=== PATIENT | male | born 1955 | race Caucasian/White ===

== ENCOUNTER 2017-01-19 16:28 | Emergency (ER) | payer OTHER ==
[2017-01-19 16:32] VITALS: BP 158/93; PULSE 86; TEMP 98.8; BMI 21.2
[2017-01-19] MEDS ORDERED: ALPRAZolam 2 MG TABLET PO ONE (17:21)
[2017-01-19] MEDS ORDERED: ALPRAZolam 0.25 MG TABLET ONE (17:24)
--- NOTE | 2017-01-19 17:32 | PDOC ---
History of Present Illness - General Chief Complaint: RX Refill Stated Complaint: ANXIETY Time Seen by Provider: 01/19/17 16:36 History Source: Patient Exam Limitations: No Limitations - History of Present Illness Initial Comments: 01/19/17 17:23 Patient is a 62-year-old male with history of chronic anxiety on high dose alprazolam, was taking 1 mg, 10 mg per day. Patient recently saw a new psychiatrist because his old psychiatrist had a retired who changed his dose to alprazolam 0.5 mg. Patient states that he feels extremely anxious and his anxiety level is "through the roof" feels that he may go through withdrawals. Patient was seen by his primary care doctor today Dr. Epstein today that attempted to give him a few tablets to cover him until the psychiatrist returns. Prescription was attempted to be sent, pharmacy was not able to fill. See MDM section for Istop info. Past Medical History: Denies. Allergies: No known allergies Medications: Xanax Family History: Non-contributory Social History: Denies smoking, alcohol use, or IVDU Vital signs on arrival are notable for pulse of 86 BP 158/93. Review of Systems GENERAL/CONSTITUTIONAL: No fever or chills. No weakness. No weight change. HEAD, EYES, EARS, NOSE AND THROAT: No change in vision. No ear pain or discharge. No sore throat. CARDIOVASCULAR: No chest pain or shortness of breath. No palpitations. RESPIRATORY: No cough, wheezing, or hemoptysis. GASTROINTESTINAL: No nausea, vomiting, diarrhea or constipation. No rectal bleeding. GENITOURINARY: No dysuria, frequency, or change in urination. MUSCULOSKELETAL: No joint or muscle swelling or pain. No neck or back pain. SKIN AND BREASTS: No rash or easy bruising. NEUROLOGIC: No headache, vertigo, loss of consciousness, or loss of sensation. PSYCHIATRIC: No depression or anxiety. ENDOCRINE: No increased thirst. No abnormal weight change. HEMATOLOGIC/LYMPHATIC: No anemia, easy bleeding, or history of blood clots. ALLERGIC/IMMUNOLOGIC: No hives or skin allergy. No latex allergy. Physical Exam: GENERAL: The patient is awake, alert, and fully oriented, in no acute distress. EYES: Pupils equal, round and reactive to light, extraocular movements intact, sclera anicteric, conjunctiva clear. ENT: Ears normal, nares patent, oropharynx clear without exudates. Moist mucous membranes. No uvula deviation NECK: Normal range of motion, supple without lymphadenopathy, JVD, or masses. LUNGS: Breath sounds equal, clear to auscultation bilaterally. No wheezes, and no crackles. HEART: Regular rate and rhythm, normal S1 and S2 without murmur, rub or gallop. ABDOMEN: Soft, nontender, normoactive bowel sounds. No guarding, no rebound. No masses. No bruising or abrasions MUSCULOSKELETAL: Normal range of motion, no edema. No clubbing or cyanosis. No cords, erythema, or tenderness. No CVA Tenderness with fist. NEUROLOGICAL: Cranial nerves II through XII grossly intact. Normal speech, normal gait. PSYCH: Normal mood, normal affect. Not demonstrating clinical signs of anxiety. SKIN: Warm, Dry, normal turgor, no rashes or lesions noted. Past History - Past Medical History Allergies/Adverse Reactions: Allergies Allergy/AdvReac Type Severity Reaction Status Date / Time No Known Allergies Allergy Verified 01/19/17 16:32 Home Medications: Ambulatory Orders Alprazolam [Xanax] 0.5 mg PO ASDIR 01/19/17 Psychiatric Problems: Yes (anxiety) - Psycho/Social/Smoking Cessation Hx Anxiety: Yes Suicidal Ideation: No Smoking History: Current every day smoker Number of Cigarettes Smoked Daily: 8 Information on smoking cessation initiated: No Hx Alcohol Use: No Drug/Substance Use Hx: No *Physical Exam - Vital Signs Last Vital Signs Temp Pulse Resp BP Pulse Ox 98.8 F 86 16 158/93 98 01/19/17 16:30 01/19/17 16:30 01/19/17 16:30 01/19/17 16:30 01/19/17 16:30 Medical Decision Making - Medical Decision Making 01/19/17 17:32 A/P: Patient here with chronic anxiety his medication dose was recently decreased significantly causing him to have increased anxiety and feeling of panic attacks. Patient has been cutting his pills in half to cover him was unable to receive prescription a primary care doctor and his psychiatrist is on medication. I stop monitored This report was requested by: Jacklyn Boyle | Reference #: [id number] You have not added a [facility] number. Keeping your N[facility] number(s) up to date on the My [facility] Numbers page will enable the separation of your prescriptions from others ' in the search results. Others' Prescriptions Patient Name: Prasanth Baron Date: 1955 Address: [address] [place] [address] Sex: Male Rx Written Rx Dispensed Drug Quantity Days Supply Prescriber Name 12/31/2016 12/31/2016 alprazolam 0.5 mg tablet 240 30 Haley Schmitt MD 12/02/2016 12/03/2016 alprazolam 0.5 mg tablet 240 30 Haley Schmitt MD 11/12/2016 11/13/2016 alprazolam 1 mg tablet 300 30 HayChantal olson MD 10/15/2016 10/15/2016 alprazolam 1 mg tablet 300 30 HaymoChantal huitron MD 09/01/2016 09/17/2016 alprazolam 1 mg tablet 300 30 FraierPrasanth MD 08/17/2016 08/17/2016 alprazolam 1 mg tablet 300 30 FraierPrasanth MD 07/13/2016 07/20/2016 alprazolam 1 mg tablet 300 30 FraierPrasanth MD 06/19/2016 06/19/2016 alprazolam 1 mg tablet 300 30 FraierPrasanth MD 05/19/2016 05/19/2016 alprazolam 1 mg tablet 300 30 FraierPrasanth MD 04/12/2016 04/19/2016 alprazolam 1 mg tablet 300 30 FraierPrasanth MD 03/12/2016 03/19/2016 alprazolam 1 mg tablet 300 30 FraierPrasanth MD 02/18/2016 02/18/2016 alprazolam 1 mg tablet 300 30 FraierPrasanth MD * - Drugs marked with an asterisk are compound drugs. If the compound drug is made up of more than one controlled substance, then each controlled substance will be a separate row in the table. I explained to patient that due to his prescription being filled on 12/31/2016 we are unable to write another prescription at this time. 1 mg of alprazolam ordered while in emergency department, patient will need to follow-up in the office of his psychiatrist tomorrow even though they're on vacation he needs to call to see if there is another psychiatrist available to see him. Patient is not demonstrating any clinical signs of withdrawal at this time. We will give him a dose to cover him until tomorrow when he follows up in the office of his psychiatrist. Patient agrees with current plan, will follow-up tomorrow *DC/Admit/Observation/Transfer Diagnosis at time of Disposition: Anxiety, Issue of repeat prescription for medication - Discharge Dispostion Disposition: HOME Condition at time of disposition: Good Admit: No - Referrals Referrals: Chantal Epstein [Primary Care Provider] - - Patient Instructions Additional Instructions: Please follow-up with your psychiatrist tomorrow if unavailable please ask to see another practitioner in the practice for evaluation.
== END 2017-01-19 17:38 | disposition home or self-care (01) ==
LOC: JERFT 16:28
DX: F41.9 Anxiety disorder, unspecified (principal); F17.210 Nicotine dependence, cigarettes, uncomplicated
CPT/HCPCS: 99281-25

== ENCOUNTER 2017-04-20 15:08 | Emergency (ER) | payer OTHER ==
[2017-04-20 15:19] VITALS: BP 144/91; PULSE 87; TEMP 97; BMI 20.6
--- NOTE | 2017-04-20 15:21 | PDOC ---
Rapid Medical Evaluation Time Seen by Provider: 04/20/17 15:10 Medical Evaluation: Allergies Allergy/AdvReac Type Severity Reaction Status Date / Time No Known Allergies Allergy Verified 04/17/17 16:36 04/20/17 15:11 I have performed a brief in-person evaluation of this patient. The Patient presents with a chief complaint of panic attack x this am Seen in emergency room 04/17 given 10 tabs of alprazalom, also given 160 alprazalom 03/26/2017. States seen by doctor's today who sent him here for prescription refill. Pertinent physical exam findings are: nad apppears anxious with pressured speech unlabored breathing orders defer to provider providing care The patient will proceed to the ED for further evaluation.
[2017-04-20] MEDS ORDERED: ALPRAZolam 0.25 MG TABLET PO ONE (16:30)
--- NOTE | 2017-04-20 16:30 | PDOC ---
History of Present Illness - General Chief Complaint: RX Refill Stated Complaint: RX, ANXIETY ATTACK (FOLLOW-UP) Time Seen by Provider: 04/20/17 15:10 Past History - Past Medical History Allergies/Adverse Reactions: Allergies Allergy/AdvReac Type Severity Reaction Status Date / Time No Known Allergies Allergy Verified 04/20/17 15:19 Home Medications: Ambulatory Orders Alprazolam [Xanax] 0.5 mg PO ASDIR 01/19/17 Alprazolam [Xanax] 0.5 mg PO Q6H #24 tablet MDD 4 04/20/17 COPD: No Dementia: No Hypercholesterolemia: Yes Psychiatric Problems: Yes (anxiety) Other medical history: migraines - Immunization History Immunization Up to Date: Yes - Suicide/Smoking/Psychosocial Hx Smoking History: Current every day smoker Number of Cigarettes Smoked Daily: 9 Information on smoking cessation initiated: No Hx Alcohol Use: No Drug/Substance Use Hx: No Substance Use Type: None *Physical Exam - Vital Signs Last Vital Signs Temp Pulse Resp BP Pulse Ox 97 F L 87 18 144/91 100 04/20/17 15:16 04/20/17 15:16 04/20/17 15:16 04/20/17 15:16 04/20/17 15:16 *DC/Admit/Observation/Transfer Diagnosis at time of Disposition: Issue of repeat prescription for medication, Anxiety - Discharge Dispostion Disposition: HOME - Prescriptions Prescriptions: Alprazolam [Xanax] 0.5 mg PO Q6H #24 tablet MDD 4 - Referrals Referrals: Chantal Epstein [Primary Care Provider] - Sharif Malave NP [Nurse Practitioner] - - Patient Instructions Printed Discharge Instructions: DI for Anxiety -- Adult Additional Instructions: Your xanax was refilled today. Please follow up with your primary care doctor on Thursday as scheduled. Please make and appointment to see Sharif Kirby NP for a psychiatry appointment. - Post Discharge Activity
[2017-04-20] MEDS ORDERED: ALPRAZolam 0.25 MG TABLET ONE (16:37)
== END 2017-04-20 16:39 | disposition home or self-care (01) ==
LOC: JERFT 15:08
DX: F41.0 Panic disorder [episodic paroxysmal anxiety] (principal)
CPT/HCPCS: 99281-25

== ENCOUNTER 2020-04-27 14:26 | Emergency (ER) | payer OTHER ==
[2020-04-27 14:34] VITALS: BP 176/86; PULSE 83; TEMP 97.9; BMI 21.6
== END 2020-04-27 15:39 | disposition home or self-care (01) ==
LOC: JERFT 14:26
DX: Z76.0 Encounter for issue of repeat prescription (principal)
CPT/HCPCS: 99281-25

== ENCOUNTER 2021-08-13 17:38 | Inpatient (IN) | payer OTHER ==
[2021-08-13] MEDS ORDERED: SODIUM CHLORIDE 0.9% 1000 ML INFUS.BAG IV ONE (17:47)
[2021-08-13] MEDS ORDERED: VANCOMYCIN 1 GM in D5W (PRE-DOCKED) 1,000 MG/250 ML IVPB ONE (18:20)
[2021-08-13] MEDS ORDERED: PIPERACILLIN/TAZOB 4.5 GM 4.5 GM in DEXTROSE 5%-WATER 100 ML IVPB ONE (18:21)
[2021-08-13 18:35] LABS: VENOUS BASE EXCESS -6.7 mmol/L (-2-2); VENOUS PCO2 46.2 mmHg (38-52); VENOUS PH 7.262 (7.310-7.410)
[2021-08-13 18:36] LABS: BASO % 0.9 % (0-2.0); EOS % 0.6 % (0-4.5); HEMATOCRIT 39.6 % (35.4-49); LYMPH % 18.3 % (8-40); MCH 28.4 pg (25.7-33.7); MCHC 32.8 g/dl (32.0-35.9); MEAN CELL VOLUME 86.6 fl (80-96); MEAN PLT VOLUME 8.9 fl (7.5-11.1); MONO % 6.4 % (3.8-10.2); NEUT % 73.8 % (42.8-82.8); PLATELET COUNT 222 10^3/uL (134-434); RBC 4.57 M/mm3 (4.00-5.60); RDW 16.2 % (11.9-15.9); WHITE BLOOD COUNT 12.6 K/mm3 (4.0-10.0)
[2021-08-13 18:44] LABS: INR 1.38 (0.83-1.09); PROTHROMBIN TIME (PATIENT) 15.9 SEC (9.7-13.0)
[2021-08-13 18:47] LABS: ACTIVATED PTT 23.1 SECONDS (25.2-36.5)
[2021-08-13] MEDS ORDERED: dilTIAZem HCL 50 MG/10 ML - 10 ML VIAL IVPUSH ONE (18:51)
[2021-08-13 19:00] LABS: CALCIUM 9.8 mg/dL (8.5-10.1)
[2021-08-13 19:01] LABS: BLOOD UREA NITROGEN 30.7 mg/dL (7-18); MAGNESIUM 2.8 mg/dL (1.8-2.4)
[2021-08-13 19:04] LABS: CREATININE 1.6 mg/dL (0.55-1.3); PHOSPHOROUS 5.8 mg/dL (2.5-4.9)
[2021-08-13 19:05] LABS: BILIRUBIN,TOTAL 1.5 mg/dL (0.2-1); TOT PROT 6.5 g/dl (6.4-8.2)
[2021-08-13] MEDS ORDERED: SODIUM CHLORIDE 0.9% 500 ML INFUS.BAG IV ONE (19:05)
[2021-08-13 19:11] LABS: LACTIC ACID 9.8 mmol/L (0.4-2.0)
[2021-08-13] MEDS ORDERED: PIPERACILLIN/TAZOB 4.5 GM 4.5 GM/100 ML BAG IVPB ONE (19:15)
[2021-08-13] MEDS ORDERED: VANCOMYCIN 1 GRAM (PRE-DOCKED) 1,000 MG/250 ML BAG IVPB ONE (19:15)
[2021-08-13 19:16] VITALS: BMI 16.0
[2021-08-13] MEDS ORDERED: dilTIAZem HCL 50 MG/10 ML - 10 ML VIAL ONE (19:16)
[2021-08-13 22:21] LABS: EPI CELLS >36 /uL (0-25.1); HYALINE CASTS 4 /uL (0-3.1); URINE APPEARANCE CLEAR; URINE BACTERIA 58 /uL (0-1359); URINE BILIRUBIN 1+ (NEGATIVE); URINE COLOR DK YELLOW; URINE GLUCOSE (UA) NEGATIVE (NEGATIVE); URINE KETONE TRACE (NEGATIVE); URINE LEUK ESTERASE NEGATIVE (NEGATIVE); URINE NITRITE NEGATIVE (NEGATIVE); URINE PROTEIN 1+ (NEGATIVE); URINE RBC 521 /uL (0-23.9); URINE UROBILINOGEN 0.2 mg/dL (0.2-1.0)
[2021-08-13 22:29] LABS: URINE BARBITURATES NEGATIVE (NEGATIVE)
[2021-08-13 22:30] LABS: PHENCYCLIDINE,URINE NEGATIVE (NEGATIVE); URINE AMPHETAMINES NEGATIVE (NEGATIVE)
[2021-08-13 22:33] LABS: COCAINE, UR NEGATIVE (NEGATIVE); METHADONE, UR NEGATIVE (NEGATIVE); OPIATES, URI NEGATIVE (NEGATIVE); URINE BENZODIAZEPINES POSITIVE (NEGATIVE)
[2021-08-13 23:02] LABS: URINE WBC 82 /uL (0-25.8)
[2021-08-14 00:42] LABS: VENOUS BASE EXCESS -4.5 mmol/L (-2-2); VENOUS O2 SATURATION 56.1 % (70-80); VENOUS PCO2 33.5 mmHg (38-52); VENOUS PH 7.388 (7.310-7.410)
[2021-08-14 01:40] LABS: LACTIC ACID 3.5 mmol/L (0.4-2.0)
[2021-08-14] MEDS ORDERED: KCL 10 MEQ IVPB 10 MEQ/100 ML INFUS.BAG IVPB ONE ×3 (01:58→05:27)
[2021-08-14] MEDS ORDERED: PIPERACILLIN/TAZOB 3.375 GM 3.375 GM in DEXTROSE 5%-WATER - 50 ML IVPB SCH (02:00)
[2021-08-14] MEDS: KCL 10 MEQ IVPB 10 MEQ/100 ML INFUS.BAG IVPB SCH ×3 (02:09→06:00)
[2021-08-14] MEDS: SODIUM CHLORIDE 1,000 ML IV SCH (02:09)
[2021-08-14] MEDS ORDERED: PIPERACILLIN/TAZOB 2.25 GM 2.25 GM/50 ML BAG IVPB ONE ×4 (03:06→22:37)
[2021-08-14] MEDS: PIPERACILLIN/TAZOB 2.25 GM 2.25 GM in DEXTROSE 5%-WATER - 50 ML IVPB SCH ×4 (03:20→22:48)
[2021-08-14] MEDS ORDERED: HEPARIN NA (PORCINE) 5,000 UNITS/ML 1ML VIAL ONE ×3 (06:01→22:38)
[2021-08-14 06:10] LABS: BILIRUBIN,DIRECT 0.4 mg/dL (0.0-0.2)
[2021-08-14] MEDS: HEPARIN NA (PORCINE) 5,000 UNITS/ML 1ML VIAL SQ SCH ×3 (06:12→22:48)
[2021-08-14] MEDS ORDERED: VANCOMYCIN 1 GM in D5W (PRE-DOCKED) 1,000 MG/250 ML IVPB SCH (10:00)
[2021-08-14 10:52] LABS: BASO % 1.3 % (0-2.0); EOS % 1.2 % (0-4.5); HEMATOCRIT 33.9 % (35.4-49); HEMOGLOBIN 11.8 GM/dL (11.7-16.9); LYMPH % 8.8 % (8-40); MCH 29.6 pg (25.7-33.7); MCHC 34.9 g/dl (32.0-35.9); MEAN CELL VOLUME 84.8 fl (80-96); MEAN PLT VOLUME 8.1 fl (7.5-11.1); MONO % 5.4 % (3.8-10.2); NEUT % 83.3 % (42.8-82.8); PLATELET COUNT 124 10^3/uL (134-434); RDW 16.3 % (11.9-15.9); WHITE BLOOD COUNT 8.3 K/mm3 (4.0-10.0)
[2021-08-14] MEDS ORDERED: ACETAMINOPHEN/CAFFEINE/BUTALBITAL 1 TAB PO PRN (11:27)
[2021-08-14 11:42] LABS: ALBUMIN 2.5 g/dl (3.4-5.0); BILIRUBIN,DIRECT 0.4 mg/dL (0.0-0.2); BILIRUBIN,TOTAL 1.2 mg/dL (0.2-1); BLOOD UREA NITROGEN 30.3 mg/dL (7-18); CALCIUM 8.4 mg/dL (8.5-10.1); MAGNESIUM 2.2 mg/dL (1.8-2.4); PHOSPHOROUS 3.2 mg/dL (2.5-4.9); TOT PROT 5.2 g/dl (6.4-8.2)
[2021-08-14] MEDS: LORazepam 2 MG/ML SDV VIAL IVPUSH PRN (13:15)
[2021-08-14] MEDS: CHLORHEXIDINE GLUCONATE 0.12% 15ML CUP MM SCH ×2 (13:30→23:14)
[2021-08-14] MEDS ORDERED: dilTIAZem HCL 125 MG/25 ML - 25 ML VIAL ONE (15:10)
[2021-08-14] MEDS: dilTIAZem HCL 50 MG/10 ML - 10 ML VIAL IVPUSH PRN (15:20)
[2021-08-14] MEDS ORDERED: VANCOMYCIN/WATER FOR INJ (PEG) 1,000 MG/200 ML BAG IVPB ONE (18:00)
[2021-08-14 22:12] LABS: CHOLESTEROL 132 mg/dL (50-200)
[2021-08-14 22:13] LABS: TRIGLYCERIDES 127 mg/dL (0-150)
[2021-08-14 22:14] LABS: LDL CHOLESTEROL (ONLY SJRH) 79 mg/dL (5-100)
[2021-08-14 22:15] LABS: HDL CHOLESTEROL 35 mg/dL (40-60)
[2021-08-14] MEDS: ASPIRIN 81 MG CHEWABLE TABLETS PO SCH (22:35)
[2021-08-15] MEDS: SODIUM CHLORIDE 1,000 ML IV SCH ×2 (01:58→22:34)
[2021-08-15] MEDS ORDERED: HEPARIN NA (PORCINE) 5,000 UNITS/ML 1ML VIAL ONE ×2 (06:13→09:01)
[2021-08-15] MEDS: HEPARIN NA (PORCINE) 5,000 UNITS/ML 1ML VIAL SQ SCH ×3 (06:19→22:33)
[2021-08-15 07:56] LABS: BASO % 1.4 % (0-2.0); EOS % 2.4 % (0-4.5); HEMATOCRIT 31.9 % (35.4-49); HEMOGLOBIN 10.8 GM/dL (11.7-16.9); LYMPH % 9.1 % (8-40); MCH 28.8 pg (25.7-33.7); MEAN CELL VOLUME 84.8 fl (80-96); MEAN PLT VOLUME 8.1 fl (7.5-11.1); MONO % 4.6 % (3.8-10.2); NEUT % 82.5 % (42.8-82.8); PLATELET COUNT 141 10^3/uL (134-434); RBC 3.76 M/mm3 (4.00-5.60); RDW 16.4 % (11.9-15.9)
[2021-08-15 08:05] LABS: CALCIUM 7.7 mg/dL (8.5-10.1)
[2021-08-15 08:06] LABS: ALBUMIN 2.3 g/dl (3.4-5.0); MAGNESIUM 2.3 mg/dL (1.8-2.4)
[2021-08-15 08:09] LABS: PHOSPHOROUS 3.2 mg/dL (2.5-4.9)
[2021-08-15 08:10] LABS: TOT PROT 4.9 g/dl (6.4-8.2)
[2021-08-15 08:11] LABS: BILIRUBIN,TOTAL 1.2 mg/dL (0.2-1)
[2021-08-15] MEDS ORDERED: ASPIRIN 81 MG CHEWABLE TABLETS ONE (09:01)
[2021-08-15] MEDS: CHLORHEXIDINE GLUCONATE 0.12% 15ML CUP MM SCH ×2 (09:19→22:42)
[2021-08-15] MEDS: ASPIRIN 81 MG CHEWABLE TABLETS PO SCH (09:19)
[2021-08-15] MEDS ORDERED: DOCUSATE SODIUM 100 MG CAPSULE (FP) PO SCH (10:00)
[2021-08-15] MEDS ORDERED: LIDOCAINE HCL 2% JELLY 10 ML CARTRIDGE ONE (15:47)
[2021-08-15] MEDS ORDERED: PIPERACILLIN/TAZOBACTAM 2.25 GM VIAL IVPB ONE (22:09)
[2021-08-15] MEDS ORDERED: DEXTROSE 5%-WATER - 50 ML IVPB ONE (22:09)
[2021-08-15] MEDS: PIPERACILLIN/TAZOB 2.25 GM 2.25 GM in DEXTROSE 5%-WATER - 50 ML IVPB SCH (22:33)
[2021-08-16] MEDS ORDERED: DEXTROSE 5%-WATER - 50 ML IVPB ONE ×4 (02:27→20:47)
[2021-08-16] MEDS ORDERED: PIPERACILLIN/TAZOBACTAM 2.25 GM VIAL IVPB ONE ×4 (02:27→20:46)
[2021-08-16] MEDS: SODIUM CHLORIDE 1,000 ML IV SCH ×2 (03:46→13:28)
[2021-08-16] MEDS: PIPERACILLIN/TAZOB 2.25 GM 2.25 GM in DEXTROSE 5%-WATER - 50 ML IVPB SCH ×4 (03:47→20:53)
[2021-08-16] MEDS: HEPARIN NA (PORCINE) 5,000 UNITS/ML 1ML VIAL SQ SCH ×3 (06:17→21:05)
[2021-08-16 07:23] LABS: HEMATOCRIT 31.7 % (35.4-49); MCH 29.2 pg (25.7-33.7); MCHC 34.5 g/dl (32.0-35.9); MEAN CELL VOLUME 84.5 fl (80-96); MEAN PLT VOLUME 7.9 fl (7.5-11.1); PLATELET COUNT 117 10^3/uL (134-434); RBC 3.75 M/mm3 (4.00-5.60); RDW 16.4 % (11.9-15.9); WHITE BLOOD COUNT 6.7 K/mm3 (4.0-10.0)
[2021-08-16 07:42] LABS: CALCIUM 7.8 mg/dL (8.5-10.1)
[2021-08-16 07:43] LABS: ALBUMIN 2.3 g/dl (3.4-5.0); BLOOD UREA NITROGEN 19.6 mg/dL (7-18); MAGNESIUM 2.2 mg/dL (1.8-2.4)
[2021-08-16 07:46] LABS: CREATININE 0.6 mg/dL (0.55-1.3)
[2021-08-16 07:48] LABS: BILIRUBIN,TOTAL 1.3 mg/dL (0.2-1); TOT PROT 4.7 g/dl (6.4-8.2)
[2021-08-16] MEDS ORDERED: POTASSIUM CHLORIDE TABS 20 MEQ TABLET.ER (FP) PO ONE (08:16)
[2021-08-16] MEDS ORDERED: DOCUSATE NA 100 MG/10 ML UNIT-DOSE CUPS NGT PRN (08:26)
[2021-08-16] MEDS ORDERED: POTASSIUM CHLORIDE ORAL LIQUID 20 MEQ/15 ML NGT ONE (09:00)
[2021-08-16] MEDS: ASPIRIN 81 MG CHEWABLE TABLETS NGT SCH (10:28)
[2021-08-16] MEDS: CHLORHEXIDINE GLUCONATE 0.12% 15ML CUP MM SCH ×2 (10:29→21:05)
[2021-08-16] MEDS: dilTIAZem HCL 30 MG TABLET NR SCH ×3 (13:28→23:23)
[2021-08-16 14:01] LABS: SYPHILIS W/ RPR CONF NON-REACTIVE (NONREACTIVE)
[2021-08-16 14:30] LABS: HIV INTERPRETATION NEGATIVE (NEGATIVE)
[2021-08-16] MEDS: D5-1/2NS+20 MEQ KCL - 20 MEQ/1,000 ML INFUS.BAG IV SCH (17:09)
[2021-08-17] MEDS ORDERED: PIPERACILLIN/TAZOBACTAM 2.25 GM VIAL IVPB ONE ×2 (01:25→08:47)
[2021-08-17] MEDS ORDERED: DEXTROSE 5%-WATER - 50 ML IVPB ONE ×2 (01:25→08:47)
[2021-08-17] MEDS: LORazepam 2 MG/ML SDV VIAL IVPUSH PRN (01:29)
[2021-08-17] MEDS: PIPERACILLIN/TAZOB 2.25 GM 2.25 GM in DEXTROSE 5%-WATER - 50 ML IVPB SCH ×3 (02:26→15:43)
[2021-08-17] MEDS: HEPARIN NA (PORCINE) 5,000 UNITS/ML 1ML VIAL SQ SCH ×2 (05:33→14:40)
[2021-08-17] MEDS: dilTIAZem HCL 30 MG TABLET NR SCH ×4 (05:41→23:55)
[2021-08-17 07:48] LABS: HEMATOCRIT 28.6 % (35.4-49); MCH 29.4 pg (25.7-33.7); MEAN CELL VOLUME 83.9 fl (80-96); MEAN PLT VOLUME 8.1 fl (7.5-11.1); PLATELET COUNT 124 10^3/uL (134-434); RBC 3.41 M/mm3 (4.00-5.60); RDW 16.7 % (11.9-15.9); WHITE BLOOD COUNT 6.3 K/mm3 (4.0-10.0)
[2021-08-17 07:54] LABS: ALBUMIN 2.2 g/dl (3.4-5.0); CALCIUM 7.8 mg/dL (8.5-10.1)
[2021-08-17 07:55] LABS: BLOOD UREA NITROGEN 13.8 mg/dL (7-18)
[2021-08-17 07:59] LABS: CREATININE 0.8 mg/dL (0.55-1.3)
[2021-08-17 08:00] LABS: BILIRUBIN,TOTAL 1.2 mg/dL (0.2-1)
[2021-08-17 08:01] LABS: TOT PROT 4.5 g/dl (6.4-8.2)
[2021-08-17] MEDS: ASPIRIN 81 MG CHEWABLE TABLETS NGT SCH (09:08)
[2021-08-17] MEDS: LISINOPRIL 5 MG TABLET PO SCH (09:08)
[2021-08-17] MEDS: CHLORHEXIDINE GLUCONATE 0.12% 15ML CUP MM SCH ×2 (09:08→21:20)
[2021-08-17] MEDS: AMOX TR/POT CLAV 875MG/125MG TABLETS (FP) NR SCH (17:51)
[2021-08-17] MEDS: D5-1/2NS+20 MEQ KCL - 20 MEQ/1,000 ML INFUS.BAG IV SCH (19:20)
[2021-08-17] MEDS: ACETAMINOPHEN/CAFFEINE/BUTALBITAL 1 TAB NGT PRN (19:54)
[2021-08-17] MEDS: ENOXAPARIN NA (PORCINE) 60 MG/0.6 ML DISP.SYRIN SQ SCH (21:20)
[2021-08-18] MEDS: ACETAMINOPHEN/CAFFEINE/BUTALBITAL 1 TAB NGT PRN ×2 (05:22→13:38)
[2021-08-18] MEDS: dilTIAZem HCL 30 MG TABLET NR SCH ×3 (05:23→17:59)
[2021-08-18 07:39] LABS: HEMATOCRIT 25.4 % (35.4-49); HEMOGLOBIN 8.8 GM/dL (11.7-16.9); MCH 28.8 pg (25.7-33.7); MCHC 34.8 g/dl (32.0-35.9); MEAN CELL VOLUME 82.7 fl (80-96); MEAN PLT VOLUME 7.6 fl (7.5-11.1); PLATELET COUNT 98 10^3/uL (134-434); RBC 3.07 M/mm3 (4.00-5.60); RDW 16.4 % (11.9-15.9); WHITE BLOOD COUNT 4.3 K/mm3 (4.0-10.0)
[2021-08-18 08:46] LABS: BILIRUBIN,TOTAL 1.2 mg/dL (0.2-1); BLOOD UREA NITROGEN 9.6 mg/dL (7-18); CALCIUM 7.4 mg/dL (8.5-10.1); CREATININE 0.7 mg/dL (0.55-1.3); MAGNESIUM 1.6 mg/dL (1.8-2.4); TOT PROT 4.3 g/dl (6.4-8.2)
[2021-08-18] MEDS: AMOX TR/POT CLAV 875MG/125MG TABLETS (FP) NR SCH ×2 (10:00→17:59)
[2021-08-18] MEDS: ASPIRIN 81 MG CHEWABLE TABLETS NGT SCH (10:00)
[2021-08-18] MEDS: ENOXAPARIN NA (PORCINE) 60 MG/0.6 ML DISP.SYRIN SQ SCH ×2 (10:01→21:47)
[2021-08-18] MEDS: LISINOPRIL 5 MG TABLET PO SCH (10:01)
[2021-08-18] MEDS: CHLORHEXIDINE GLUCONATE 0.12% 15ML CUP MM SCH ×2 (10:01→21:50)
[2021-08-18] MEDS: D5-1/2NS+20 MEQ KCL - 20 MEQ/1,000 ML INFUS.BAG IV SCH (17:59)
[2021-08-18] MEDS: ALPRAZolam 0.25 MG TABLET PO PRN (21:52)
[2021-08-19] MEDS: dilTIAZem HCL 30 MG TABLET NR SCH ×3 (05:56→13:08)
[2021-08-19] MEDS ORDERED: MAGNESIUM SULF 50% (8.12 MEQ/2 ML-1 GM VIAL) IVPB ONE (06:58)
[2021-08-19 07:13] LABS: CALCIUM 7.7 mg/dL (8.5-10.1)
[2021-08-19 07:14] LABS: MAGNESIUM 1.5 mg/dL (1.8-2.4)
[2021-08-19 07:17] LABS: CREATININE 0.6 mg/dL (0.55-1.3)
[2021-08-19 07:18] LABS: BILIRUBIN,TOTAL 0.5 mg/dL (0.2-1); TOT PROT 4.1 g/dl (6.4-8.2)
[2021-08-19 07:43] LABS: HEMATOCRIT 24.9 % (35.4-49); HEMOGLOBIN 8.7 GM/dL (11.7-16.9); MCH 28.9 pg (25.7-33.7); MCHC 34.9 g/dl (32.0-35.9); MEAN CELL VOLUME 82.8 fl (80-96); MEAN PLT VOLUME 8.1 fl (7.5-11.1); PLATELET COUNT 99 10^3/uL (134-434); RBC 3.01 M/mm3 (4.00-5.60); RDW 16.5 % (11.9-15.9); WHITE BLOOD COUNT 4.5 K/mm3 (4.0-10.0)
[2021-08-19] MEDS: AMOX TR/POT CLAV 875MG/125MG TABLETS (FP) NR SCH ×2 (09:40→18:43)
[2021-08-19] MEDS: CHLORHEXIDINE GLUCONATE 0.12% 15ML CUP MM SCH ×2 (09:40→21:57)
[2021-08-19] MEDS: ENOXAPARIN NA (PORCINE) 60 MG/0.6 ML DISP.SYRIN SQ SCH ×2 (09:40→21:57)
[2021-08-19] MEDS: ASPIRIN 81 MG CHEWABLE TABLETS NGT SCH (09:40)
[2021-08-19] MEDS ORDERED: MAGNESIUM OXIDE 400 MG TABLET (FP) NGT ONE (10:00)
[2021-08-19] MEDS ORDERED: MAGNESIUM 1GM/D5W - 1 GM/100 ML IVPB IVPB ONE (10:00)
[2021-08-19] MEDS: LISINOPRIL 5 MG TABLET PO SCH (10:01)
[2021-08-19] MEDS: D5-1/2NS+20 MEQ KCL - 20 MEQ/1,000 ML INFUS.BAG IV SCH (18:44)
[2021-08-20] MEDS: dilTIAZem HCL 50 MG/10 ML - 10 ML VIAL IVPUSH PRN (05:14)
[2021-08-20] MEDS ORDERED: MAGNESIUM 1GM/D5W 100ML - 100 ML IVPB IVPB ONE (07:00)
[2021-08-20] MEDS: ALPRAZolam 0.25 MG TABLET PO PRN (07:54)
[2021-08-20] MEDS: AMOX TR/POT CLAV 875MG/125MG TABLETS (FP) NR SCH (08:12)
[2021-08-20] MEDS: dilTIAZem HCL 30 MG TABLET NR SCH ×3 (08:12→18:32)
[2021-08-20 09:03] LABS: HEMATOCRIT 27.4 % (35.4-49); HEMOGLOBIN 9.3 GM/dL (11.7-16.9); MCH 28.4 pg (25.7-33.7); MCHC 33.9 g/dl (32.0-35.9); MEAN CELL VOLUME 83.7 fl (80-96); MEAN PLT VOLUME 8.4 fl (7.5-11.1); PLATELET COUNT 113 10^3/uL (134-434); RBC 3.27 M/mm3 (4.00-5.60); RDW 16.6 % (11.9-15.9); WHITE BLOOD COUNT 7.1 K/mm3 (4.0-10.0)
[2021-08-20 09:23] LABS: CALCIUM 8.3 mg/dL (8.5-10.1)
[2021-08-20 09:24] LABS: ALBUMIN 2.2 g/dl (3.4-5.0); BLOOD UREA NITROGEN 7.8 mg/dL (7-18); MAGNESIUM 1.9 mg/dL (1.8-2.4)
[2021-08-20 09:27] LABS: CREATININE 0.6 mg/dL (0.55-1.3); PHOSPHOROUS 1.4 mg/dL (2.5-4.9)
[2021-08-20 09:28] LABS: BILIRUBIN,TOTAL 0.4 mg/dL (0.2-1); TOT PROT 4.6 g/dl (6.4-8.2)
[2021-08-20] MEDS ORDERED: POLYETHYLENE GLYCOL 3350 119 GM BTL NGT SCH (10:00)
[2021-08-20] MEDS: ENOXAPARIN NA (PORCINE) 60 MG/0.6 ML DISP.SYRIN SQ SCH ×2 (10:54→21:17)
[2021-08-20] MEDS: ASPIRIN 81 MG CHEWABLE TABLETS NGT SCH (10:54)
[2021-08-20] MEDS: CHLORHEXIDINE GLUCONATE 0.12% 15ML CUP MM SCH ×2 (10:55→21:18)
[2021-08-20] MEDS ORDERED: POLYETHYLENE GLYCOL (HEALTHYLAX) 3350 17 GM PACKET NGT SCH (12:18)
[2021-08-20] MEDS ORDERED: NAPH,MB-DB/K PH,MBDB POWDER PACKET NGT SCH (14:00)
[2021-08-20] MEDS ORDERED: SODIUM PHOSPHATE - 20 MM in DEXTROSE 5%-WATER - 250 ML IVPB ONE (14:15)
[2021-08-20 15:45] LABS: EPI CELLS 5 /uL (0-25.1); HYALINE CASTS 0 /uL (0-3.1); URINE APPEARANCE CLEAR; URINE BACTERIA 5 /uL (0-1359); URINE BILIRUBIN NEGATIVE (NEGATIVE); URINE COLOR YELLOW; URINE GLUCOSE (UA) NEGATIVE (NEGATIVE); URINE KETONE NEGATIVE (NEGATIVE); URINE LEUK ESTERASE NEGATIVE (NEGATIVE); URINE NITRITE NEGATIVE (NEGATIVE); URINE PROTEIN NEGATIVE (NEGATIVE); URINE RBC 1643 /uL (0-23.9); URINE UROBILINOGEN 0.2 mg/dL (0.2-1.0); URINE WBC 9 /uL (0-25.8)
[2021-08-20] MEDS: ATORVASTATIN CA 40 MG TABLET (FP) NGT SCH (21:15)
[2021-08-20] MEDS: NAPH,MB-DB/K PH,MBDB POWDER PACKET PO SCH (21:17)
[2021-08-21] MEDS ORDERED: ACETAMINOPHEN/CAFFEINE/BUTALBITAL 1 TAB NGT PRN (00:02)
[2021-08-21] MEDS ORDERED: ALPRAZolam 0.25 MG TABLET NGT PRN ×2 (00:05→00:06)
[2021-08-21] MEDS: dilTIAZem HCL 30 MG TABLET NR SCH ×4 (00:27→18:04)
[2021-08-21] MEDS: NAPH,MB-DB/K PH,MBDB POWDER PACKET PO SCH ×3 (05:49→21:42)
[2021-08-21 07:31] LABS: HEMATOCRIT 24.5 % (35.4-49); HEMOGLOBIN 8.3 GM/dL (11.7-16.9); MCH 28.2 pg (25.7-33.7); MCHC 33.7 g/dl (32.0-35.9); MEAN CELL VOLUME 83.5 fl (80-96); MEAN PLT VOLUME 8.5 fl (7.5-11.1); PLATELET COUNT 122 10^3/uL (134-434); RBC 2.93 M/mm3 (4.00-5.60); RDW 16.2 % (11.9-15.9); WHITE BLOOD COUNT 6.8 K/mm3 (4.0-10.0)
[2021-08-21 08:23] LABS: ALBUMIN 1.8 g/dl (3.4-5.0); CALCIUM 7.9 mg/dL (8.5-10.1); MAGNESIUM 1.8 mg/dL (1.8-2.4)
[2021-08-21 08:26] LABS: CREATININE 0.5 mg/dL (0.55-1.3)
[2021-08-21 08:27] LABS: BILIRUBIN,TOTAL 0.5 mg/dL (0.2-1); TOT PROT 4.4 g/dl (6.4-8.2)
[2021-08-21 09:16] LABS: TOTAL IRON BINDING CAPACITY 143 ug/dL (250-450)
[2021-08-21 09:18] LABS: IRON SERUM 29 ug/dL (50-175)
[2021-08-21] MEDS: ENOXAPARIN NA (PORCINE) 60 MG/0.6 ML DISP.SYRIN SQ SCH ×2 (10:14→21:42)
[2021-08-21] MEDS: CHLORHEXIDINE GLUCONATE 0.12% 15ML CUP MM SCH ×2 (10:14→21:42)
[2021-08-21] MEDS: ASPIRIN 81 MG CHEWABLE TABLETS NGT SCH (10:15)
[2021-08-21] MEDS: ACETAMINOPHEN 650 MG/20.3 ML ORAL SOLUTION (CUPS) GT PRN (10:22)
[2021-08-21] MEDS: ATORVASTATIN CA 40 MG TABLET (FP) NGT SCH (21:42)
[2021-08-22] MEDS: ACETAMINOPHEN 650 MG/20.3 ML ORAL SOLUTION (CUPS) GT PRN ×3 (00:30→20:52)
[2021-08-22] MEDS: dilTIAZem HCL 30 MG TABLET NR SCH ×5 (00:31→23:37)
[2021-08-22] MEDS: NAPH,MB-DB/K PH,MBDB POWDER PACKET PO SCH ×3 (06:35→22:26)
[2021-08-22 08:16] LABS: HEMATOCRIT 23.9 % (35.4-49); HEMOGLOBIN 8.3 GM/dL (11.7-16.9); MCH 29.1 pg (25.7-33.7); MCHC 34.8 g/dl (32.0-35.9); MEAN CELL VOLUME 83.6 fl (80-96); MEAN PLT VOLUME 8.5 fl (7.5-11.1); PLATELET COUNT 136 10^3/uL (134-434); RBC 2.86 M/mm3 (4.00-5.60); RDW 16.9 % (11.9-15.9)
[2021-08-22 08:38] LABS: ALBUMIN 2.1 g/dl (3.4-5.0); BLOOD UREA NITROGEN 8.9 mg/dL (7-18)
[2021-08-22 08:41] LABS: CALCIUM 8.4 mg/dL (8.5-10.1); CREATININE 0.5 mg/dL (0.55-1.3); PHOSPHOROUS 3.1 mg/dL (2.5-4.9)
[2021-08-22 08:43] LABS: BILIRUBIN,TOTAL 0.3 mg/dL (0.2-1); TOT PROT 4.5 g/dl (6.4-8.2)
[2021-08-22] MEDS: ASPIRIN 81 MG CHEWABLE TABLETS NGT SCH (10:54)
[2021-08-22] MEDS: CHLORHEXIDINE GLUCONATE 0.12% 15ML CUP MM SCH ×2 (10:54→22:25)
[2021-08-22] MEDS: ENOXAPARIN NA (PORCINE) 60 MG/0.6 ML DISP.SYRIN SQ SCH ×2 (10:54→22:25)
[2021-08-22] MEDS: THIAMINE HCL 200 MG/2 ML VIAL IVPB SCH ×3 (10:55→23:37)
[2021-08-22] MEDS ORDERED: TAMSULOSIN HCL 0.4 MG CAP PO SCH (11:20)
[2021-08-22] MEDS: ATORVASTATIN CA 40 MG TABLET (FP) NGT SCH (22:25)
[2021-08-23] MEDS: NAPH,MB-DB/K PH,MBDB POWDER PACKET PO SCH ×3 (05:15→22:01)
[2021-08-23] MEDS: dilTIAZem HCL 30 MG TABLET NR SCH ×3 (05:26→18:06)
[2021-08-23 08:30] LABS: HEMOGLOBIN 8.3 GM/dL (11.7-16.9); MCH 29.1 pg (25.7-33.7); MCHC 34.5 g/dl (32.0-35.9); MEAN CELL VOLUME 84.4 fl (80-96); MEAN PLT VOLUME 8.2 fl (7.5-11.1); PLATELET COUNT 174 10^3/uL (134-434); RBC 2.85 M/mm3 (4.00-5.60); RDW 17.3 % (11.9-15.9)
[2021-08-23] MEDS ORDERED: TAMSULOSIN HCL 0.4 MG CAP PO SCH (08:30)
[2021-08-23] MEDS: THIAMINE HCL 200 MG/2 ML VIAL IVPB SCH ×2 (08:35→18:06)
[2021-08-23] MEDS: AMINO ACIDS/PROTEIN HYDROLYS 30 ML LIQUID.PKT PO SCH ×2 (08:36→18:06)
[2021-08-23 08:48] LABS: CALCIUM 8.6 mg/dL (8.5-10.1)
[2021-08-23 08:49] LABS: BLOOD UREA NITROGEN 11.7 mg/dL (7-18)
[2021-08-23 08:51] LABS: CREATININE 0.5 mg/dL (0.55-1.3)
[2021-08-23 08:53] LABS: BILIRUBIN,TOTAL 0.4 mg/dL (0.2-1); TOT PROT 4.9 g/dl (6.4-8.2)
[2021-08-23] MEDS: CHLORHEXIDINE GLUCONATE 0.12% 15ML CUP MM SCH ×2 (09:02→22:01)
[2021-08-23] MEDS: ENOXAPARIN NA (PORCINE) 60 MG/0.6 ML DISP.SYRIN SQ SCH ×2 (09:02→22:00)
[2021-08-23] MEDS: dilTIAZem HCL 50 MG/10 ML - 10 ML VIAL IVPUSH PRN (18:59)
[2021-08-23] MEDS ORDERED: dilTIAZem HCL 50 MG/10 ML - 10 ML VIAL IVPUSH ONE (19:49)
[2021-08-23] MEDS: ATORVASTATIN CA 40 MG TABLET (FP) NGT SCH (22:01)
[2021-08-23] MEDS ORDERED: METOPROLOL TARTRATE 5 MG/5 ML VIAL IVPUSH ONE ×2 (22:44→23:45)
[2021-08-23] MEDS ORDERED: SODIUM CHLORIDE 1,000 ML IV SCH (23:00)
[2021-08-24] MEDS: THIAMINE HCL 200 MG/2 ML VIAL IVPB SCH ×4 (00:08→23:17)
[2021-08-24] MEDS: dilTIAZem HCL 30 MG TABLET NR SCH (00:08)
[2021-08-24] MEDS ORDERED: SODIUM CHLORIDE 500 ML IV STA ×3 (02:14→08:42)
[2021-08-24] MEDS ORDERED: DIGOXIN 0.5 MG/2 ML AMPUL IVPB ONE (05:15)
[2021-08-24] MEDS: NAPH,MB-DB/K PH,MBDB POWDER PACKET PO SCH ×3 (06:14→21:17)
[2021-08-24 07:06] LABS: HEMATOCRIT 23.2 % (35.4-49); HEMOGLOBIN 7.7 GM/dL (11.7-16.9); MCH 28.4 pg (25.7-33.7); MCHC 33.3 g/dl (32.0-35.9); MEAN CELL VOLUME 85.4 fl (80-96); MEAN PLT VOLUME 7.9 fl (7.5-11.1); PLATELET COUNT 245 10^3/uL (134-434); RBC 2.72 M/mm3 (4.00-5.60); RDW 17.9 % (11.9-15.9); WHITE BLOOD COUNT 11.8 K/mm3 (4.0-10.0)
[2021-08-24 07:37] LABS: CALCIUM 7.4 mg/dL (8.5-10.1)
[2021-08-24 07:39] LABS: ALBUMIN 1.7 g/dl (3.4-5.0)
[2021-08-24 07:42] LABS: CREATININE 0.7 mg/dL (0.55-1.3)
[2021-08-24 07:44] LABS: BILIRUBIN,TOTAL 0.5 mg/dL (0.2-1); TOT PROT 4.1 g/dl (6.4-8.2)
[2021-08-24] MEDS: AMINO ACIDS/PROTEIN HYDROLYS 30 ML LIQUID.PKT PO SCH ×2 (08:05→16:37)
[2021-08-24] MEDS: ACETAMINOPHEN 650 MG/20.3 ML ORAL SOLUTION (CUPS) GT PRN ×2 (08:05→16:24)
[2021-08-24 09:17] LABS: EPI CELLS 13 /uL (0-25.1); HYALINE CASTS 2 /uL (0-3.1); PH,URINE 5.5 (5.0-8.0); URINE APPEARANCE CLEAR; URINE BACTERIA 4 /uL (0-1359); URINE BILIRUBIN NEGATIVE (NEGATIVE); URINE COLOR YELLOW; URINE GLUCOSE (UA) NEGATIVE (NEGATIVE); URINE KETONE NEGATIVE (NEGATIVE); URINE LEUK ESTERASE NEGATIVE (NEGATIVE); URINE NITRITE NEGATIVE (NEGATIVE); URINE PROTEIN 1+ (NEGATIVE); URINE RBC 28 /uL (0-23.9); URINE WBC 16 /uL (0-25.8)
[2021-08-24] MEDS: ENOXAPARIN NA (PORCINE) 60 MG/0.6 ML DISP.SYRIN SQ SCH ×2 (09:37→22:21)
[2021-08-24] MEDS ORDERED: PIPERACILLIN/TAZOB 3.375 GM 3.375 GM in DEXTROSE 5%-WATER - 50 ML IVPB SCH (10:00)
[2021-08-24] MEDS ORDERED: VANCOMYCIN 1 GM in D5W (PRE-DOCKED) 1,000 MG/250 ML IVPB ONE (10:30)
[2021-08-24] MEDS ORDERED: dilTIAZem HCL 30 MG TABLET NR SCH (11:01)
[2021-08-24] MEDS: dilTIAZem HCL 60 MG TABLET GT SCH ×3 (11:23→23:17)
[2021-08-24] MEDS ORDERED: dilTIAZem HCL 60 MG TABLET PO SCH (12:00)
[2021-08-24] MEDS ORDERED: DIGOXIN IMMUNE FAB 40 MG/4 ML VIAL IVPB SCH (12:00)
[2021-08-24] MEDS ORDERED: DIGOXIN 0.5 MG/2 ML AMPUL IVPB SCH ×2 (12:00)
[2021-08-24] MEDS ORDERED: PIPERACILLIN/TAZOBACTAM 3.375 GM VIAL IVPB ONE ×2 (12:09→16:10)
[2021-08-24] MEDS ORDERED: DEXTROSE 5%-WATER - 50 ML IVPB ONE ×2 (12:09→16:10)
[2021-08-24] MEDS: CHLORHEXIDINE GLUCONATE 0.12% 15ML CUP MM SCH ×2 (12:20→21:17)
[2021-08-24] MEDS: PIPERACILLIN/TAZOB 3.375 GM 3.375 GM in DEXTROSE 5%-WATER - 50 ML IVPB SCH ×2 (12:21→17:02)
[2021-08-24] MEDS ORDERED: VANCOMYCIN/WATER FOR INJ (PEG) 1,000 MG/200 ML BAG IVPB ONE (13:30)
[2021-08-24] MEDS: AMINO ACIDS 4.25%/D5W 1,000 ML IV SCH (16:36)
[2021-08-24] MEDS: ATORVASTATIN CA 40 MG TABLET (FP) NGT SCH (21:17)
[2021-08-25] MEDS ORDERED: ALBUTEROL SO4 0.083% IH SOL 2.5 MG/3 ML VIAL.NEB. NEB ONE ×2 (01:00→01:12)
[2021-08-25] MEDS ORDERED: ACETYLCYSTEINE 20% 200MG/ML 30 ML VIAL *FOR ORAL / INH USE ONLY NEB ONE (01:08)
[2021-08-25] MEDS ORDERED: ACETYLCYSTEINE 20% 200MG/ML 4 ML VIAL *FOR ORAL / INH USE ONLY ONE (01:18)
[2021-08-25] MEDS ORDERED: DEXTROSE 5%-WATER - 50 ML IVPB ONE ×3 (01:37→15:16)
[2021-08-25] MEDS ORDERED: PIPERACILLIN/TAZOBACTAM 3.375 GM VIAL IVPB ONE ×3 (01:37→15:16)
[2021-08-25] MEDS ORDERED: ACETYLCYSTEINE 20% 200MG/ML 4 ML VIAL *FOR ORAL / INH USE ONLY NEB ONE (01:45)
[2021-08-25] MEDS: PIPERACILLIN/TAZOB 3.375 GM 3.375 GM in DEXTROSE 5%-WATER - 50 ML IVPB SCH ×3 (01:48→17:14)
[2021-08-25 03:33] LABS: ARTERIAL BLD GAS O2 SATURATION 95.5 % (95-98); ARTERIAL BLOOD GAS BASE EXCESS -3.3 mmol/L (-2-2); ARTERIAL BLOOD GAS PO2 69.7 mmHg (80-100); ARTERIAL BLOOD GAS pH 7.491 (7.350-7.450)
[2021-08-25 03:57] LABS: ALLENS TEST POSITIVE
[2021-08-25] MEDS: AMINO ACIDS 4.25%/D5W 1,000 ML IV SCH ×2 (05:07→15:38)
[2021-08-25] MEDS: NAPH,MB-DB/K PH,MBDB POWDER PACKET PO SCH ×3 (05:08→21:08)
[2021-08-25] MEDS: dilTIAZem HCL 60 MG TABLET GT SCH ×4 (05:08→23:49)
[2021-08-25 07:54] LABS: BLOOD UREA NITROGEN 20.6 mg/dL (7-18); CALCIUM 7.3 mg/dL (8.5-10.1); MAGNESIUM 1.5 mg/dL (1.8-2.4)
[2021-08-25 07:58] LABS: CREATININE 0.6 mg/dL (0.55-1.3); PHOSPHOROUS 2.3 mg/dL (2.5-4.9)
[2021-08-25 08:12] LABS: BASO % 0.3 % (0-2.0); EOS % 0.2 % (0-4.5); HEMATOCRIT 20.4 % (35.4-49); LYMPH % 2.5 % (8-40); MCH 28.1 pg (25.7-33.7); MEAN CELL VOLUME 85.3 fl (80-96); MEAN PLT VOLUME 7.8 fl (7.5-11.1); MONO % 3.5 % (3.8-10.2); NEUT % 93.5 % (42.8-82.8); PLATELET COUNT 277 10^3/uL (134-434); RBC 2.39 M/mm3 (4.00-5.60); RDW 17.9 % (11.9-15.9); WHITE BLOOD COUNT 12.5 K/mm3 (4.0-10.0)
[2021-08-25] MEDS: AMINO ACIDS/PROTEIN HYDROLYS 30 ML LIQUID.PKT PO SCH ×2 (08:12→17:14)
[2021-08-25 08:39] LABS: HEMOGLOBIN 6.7 GM/dL (11.7-16.9)
[2021-08-25] MEDS: CHLORHEXIDINE GLUCONATE 0.12% 15ML CUP MM SCH ×2 (09:49→21:08)
[2021-08-25 11:20] LABS: ANISOCYTOSIS 1+; MACROCYTOSIS 0; OVALOCYTE 1+
[2021-08-25] MEDS ORDERED: MAGNESIUM 1GM/D5W 100ML - 100 ML IVPB IVPB ONE (14:18)
[2021-08-25] MEDS ORDERED: MAGNESIUM SULF 50% (8.12 MEQ/2 ML-1 GM VIAL) ONE (14:25)
[2021-08-25] MEDS ORDERED: POTASSIUM PHOSPHATE 15 MM in DEXTROSE 5%-WATER - 250 ML IVPB ONE (15:00)
[2021-08-25] MEDS ORDERED: LACTULOSE 20 GM/30 ML UDC (FOR RECTAL USE ONLY) PR PRN (17:11)
[2021-08-25] MEDS ORDERED: GLYCERIN 1 RECTAL SUPPOSITORY, ADULT PR ONE (17:42)
[2021-08-25 18:57] LABS: HEMATOCRIT 24.3 % (35.4-49); HEMOGLOBIN 8.2 GM/dL (11.7-16.9); MCH 27.9 pg (25.7-33.7); MCHC 33.6 g/dl (32.0-35.9); MEAN CELL VOLUME 83.3 fl (80-96); MEAN PLT VOLUME 7.2 fl (7.5-11.1); PLATELET COUNT 300 10^3/uL (134-434); RBC 2.92 M/mm3 (4.00-5.60); RDW 17.5 % (11.9-15.9); WHITE BLOOD COUNT 14.6 K/mm3 (4.0-10.0)
[2021-08-25] MEDS: ATORVASTATIN CA 40 MG TABLET (FP) NGT SCH (21:08)
[2021-08-26] MEDS ORDERED: PIPERACILLIN/TAZOBACTAM 3.375 GM VIAL IVPB ONE ×3 (01:08→16:50)
[2021-08-26] MEDS ORDERED: DEXTROSE 5%-WATER - 50 ML IVPB ONE ×3 (01:08→16:50)
[2021-08-26] MEDS: PIPERACILLIN/TAZOB 3.375 GM 3.375 GM in DEXTROSE 5%-WATER - 50 ML IVPB SCH ×3 (01:34→18:06)
[2021-08-26] MEDS: AMINO ACIDS 4.25%/D5W 1,000 ML IV SCH (03:57)
[2021-08-26] MEDS: NAPH,MB-DB/K PH,MBDB POWDER PACKET PO SCH ×3 (05:44→21:47)
[2021-08-26] MEDS: dilTIAZem HCL 60 MG TABLET GT SCH ×3 (05:44→18:06)
[2021-08-26 07:51] LABS: HEMATOCRIT 24.9 % (35.4-49); HEMOGLOBIN 8.6 GM/dL (11.7-16.9); MCH 28.2 pg (25.7-33.7); MCHC 34.3 g/dl (32.0-35.9); MEAN CELL VOLUME 82.1 fl (80-96); MEAN PLT VOLUME 7.2 fl (7.5-11.1); PLATELET COUNT 326 10^3/uL (134-434); RBC 3.04 M/mm3 (4.00-5.60); RDW 17.8 % (11.9-15.9); WHITE BLOOD COUNT 14.1 K/mm3 (4.0-10.0)
[2021-08-26 08:10] LABS: CHLORIDE 105 mmol/L (98-107); SODIUM 136 mmol/L (136-145)
[2021-08-26 08:12] LABS: ALBUMIN 1.6 g/dl (3.4-5.0); CALCIUM 7.7 mg/dL (8.5-10.1); CO2 23 mmol/L (21-32); GLUCOSE,RANDOM 131 mg/dL (74-106)
[2021-08-26 08:14] LABS: BLOOD UREA NITROGEN 14.6 mg/dL (7-18); MAGNESIUM 1.9 mg/dL (1.8-2.4)
[2021-08-26 08:16] LABS: CREATININE 0.4 mg/dL (0.55-1.3); PHOSPHOROUS 2.1 mg/dL (2.5-4.9); SGOT/AST 18 U/L (15-37); SGPT/ALT 14 U/L (13-61)
[2021-08-26 08:17] LABS: TOT PROT 4.2 g/dl (6.4-8.2)
[2021-08-26 08:19] LABS: ALK PHOS 115 U/L (45-117)
[2021-08-26 08:24] LABS: ANION GAP 8 MMOL/L (8-16)
[2021-08-26] MEDS ORDERED: POTASSIUM CHLORIDE TABS 20 MEQ TABLET.ER (FP) PO SCH (10:00)
[2021-08-26 10:33] LABS: ANISOCYTOSIS 1+; MACROCYTOSIS 1+; OVALOCYTE 2+
[2021-08-26] MEDS: ACETAMINOPHEN 650 MG/20.3 ML ORAL SOLUTION (CUPS) GT PRN ×2 (10:34→21:46)
[2021-08-26] MEDS: AMINO ACIDS/PROTEIN HYDROLYS 30 ML LIQUID.PKT PO SCH ×2 (10:34→18:06)
[2021-08-26] MEDS: POTASSIUM CHLORIDE ORAL LIQUID 20 MEQ/15 ML PO SCH ×2 (10:34→21:47)
[2021-08-26] MEDS: CHLORHEXIDINE GLUCONATE 0.12% 15ML CUP MM SCH ×2 (10:35→21:48)
[2021-08-26] MEDS: POTASSIUM CHLORIDE 20 MEQ in AMINO ACIDS 4.25%/D5W 1,000 ML IV SCH (11:44)
[2021-08-26] MEDS: ATORVASTATIN CA 40 MG TABLET (FP) NGT SCH (21:48)
[2021-08-27] MEDS: POTASSIUM CHLORIDE 20 MEQ in AMINO ACIDS 4.25%/D5W 1,000 ML IV SCH
[2021-08-27] MEDS: dilTIAZem HCL 60 MG TABLET GT SCH ×4 (00:46→18:54)
[2021-08-27] MEDS ORDERED: PIPERACILLIN/TAZOBACTAM 3.375 GM VIAL IVPB ONE ×3 (01:42→17:29)
[2021-08-27] MEDS ORDERED: DEXTROSE 5%-WATER - 50 ML IVPB ONE ×3 (01:43→17:30)
[2021-08-27] MEDS: PIPERACILLIN/TAZOB 3.375 GM 3.375 GM in DEXTROSE 5%-WATER - 50 ML IVPB SCH ×3 (01:52→18:54)
[2021-08-27] MEDS: NAPH,MB-DB/K PH,MBDB POWDER PACKET PO SCH ×3 (05:29→21:49)
[2021-08-27 08:40] LABS: HEMOGLOBIN 8.4 GM/dL (11.7-16.9); MCH 27.8 pg (25.7-33.7); MCHC 33.4 g/dl (32.0-35.9); MEAN CELL VOLUME 83.1 fl (80-96); MEAN PLT VOLUME 7.5 fl (7.5-11.1); PLATELET COUNT 412 10^3/uL (134-434); RBC 3.01 M/mm3 (4.00-5.60); RDW 18.1 % (11.9-15.9); WHITE BLOOD COUNT 13.8 K/mm3 (4.0-10.0)
[2021-08-27 08:57] LABS: BLOOD UREA NITROGEN 14.1 mg/dL (7-18)
[2021-08-27 08:59] LABS: CALCIUM 7.6 mg/dL (8.5-10.1)
[2021-08-27 09:00] LABS: ALBUMIN 1.5 g/dl (3.4-5.0); CREATININE 0.4 mg/dL (0.55-1.3); MAGNESIUM 1.9 mg/dL (1.8-2.4); PHOSPHOROUS 1.7 mg/dL (2.5-4.9)
[2021-08-27 09:01] LABS: BILIRUBIN,TOTAL 0.5 mg/dL (0.2-1); TOT PROT 4.5 g/dl (6.4-8.2)
[2021-08-27] MEDS: ENOXAPARIN NA (PORCINE) 60 MG/0.6 ML DISP.SYRIN SQ SCH (09:52)
[2021-08-27] MEDS: AMINO ACIDS/PROTEIN HYDROLYS 30 ML LIQUID.PKT PO SCH ×2 (09:52→18:54)
[2021-08-27] MEDS: CHLORHEXIDINE GLUCONATE 0.12% 15ML CUP MM SCH ×2 (09:52→21:49)
[2021-08-27] MEDS ORDERED: POTASSIUM PHOSPHATE IV SCH (09:54)
[2021-08-27] MEDS ORDERED: [UNRECOGNIZED DRUG - OTHER] IV SCH (09:54)
[2021-08-27] MEDS ORDERED: POTASSIUM CHLORIDE IV SCH (09:54)
[2021-08-27] MEDS ORDERED: AMINO ACIDS IV SCH (09:54)
[2021-08-27 10:04] LABS: ANISOCYTOSIS 0; MACROCYTOSIS 0
[2021-08-27] MEDS ORDERED: POTASSIUM PHOSPHATE 30 MM in DEXTROSE 5%-WATER - 500 ML IVPB ONE (10:30)
[2021-08-27] MEDS: POTASSIUM CHLORIDE ORAL LIQUID 20 MEQ/15 ML PO SCH ×2 (12:00→21:49)
[2021-08-27] MEDS ORDERED: MAGNESIUM 2GM/50ML STERILE WATER IVPB IVPB ONE (12:30)
[2021-08-27] MEDS: KCL 10 MEQ IVPB 10 MEQ/100 ML INFUS.BAG IVPB SCH ×2 (13:16→13:49)
[2021-08-27 16:01] LABS: BLOOD UREA NITROGEN 12.6 mg/dL (7-18); CALCIUM 7.7 mg/dL (8.5-10.1); MAGNESIUM 2.6 mg/dL (1.8-2.4)
[2021-08-27 16:03] LABS: CREATININE 0.4 mg/dL (0.55-1.3)
[2021-08-27 16:04] LABS: PHOSPHOROUS 2.7 mg/dL (2.5-4.9)
[2021-08-27] MEDS: [UNRECOGNIZED DRUG - OTHER] IV SCH (16:45)
[2021-08-27] MEDS: POTASSIUM CHLORIDE IV SCH (16:45)
[2021-08-27] MEDS: AMINO ACIDS IV SCH (16:45)
[2021-08-27] MEDS: POTASSIUM PHOSPHATE IV SCH (16:45)
[2021-08-27] MEDS: ATORVASTATIN CA 40 MG TABLET (FP) NGT SCH (21:49)
[2021-08-28] MEDS ORDERED: DEXTROSE 5%-WATER - 50 ML IVPB ONE ×3 (00:22→18:16)
[2021-08-28] MEDS ORDERED: PIPERACILLIN/TAZOBACTAM 3.375 GM VIAL IVPB ONE ×3 (00:22→18:16)
[2021-08-28] MEDS: dilTIAZem HCL 60 MG TABLET GT SCH ×6 (00:31→23:37)
[2021-08-28] MEDS: AMINO ACIDS IV SCH ×2 (01:15→13:27)
[2021-08-28] MEDS: POTASSIUM PHOSPHATE IV SCH ×2 (01:15→13:27)
[2021-08-28] MEDS: [UNRECOGNIZED DRUG - OTHER] IV SCH ×2 (01:15→13:27)
[2021-08-28] MEDS: POTASSIUM CHLORIDE IV SCH ×2 (01:15→13:27)
[2021-08-28] MEDS: PIPERACILLIN/TAZOB 3.375 GM 3.375 GM in DEXTROSE 5%-WATER - 50 ML IVPB SCH ×3 (01:39→18:47)
[2021-08-28] MEDS: NAPH,MB-DB/K PH,MBDB POWDER PACKET PO SCH ×3 (05:50→21:51)
[2021-08-28 08:38] LABS: BASO % 0.4 % (0-2.0); HEMATOCRIT 28.2 % (35.4-49); HEMOGLOBIN 9.3 GM/dL (11.7-16.9); LYMPH % 4.9 % (8-40); MCH 27.8 pg (25.7-33.7); MCHC 32.9 g/dl (32.0-35.9); MEAN CELL VOLUME 84.5 fl (80-96); MEAN PLT VOLUME 7.3 fl (7.5-11.1); MONO % 7.9 % (3.8-10.2); NEUT % 85.8 % (42.8-82.8); PLATELET COUNT 541 10^3/uL (134-434); RBC 3.34 M/mm3 (4.00-5.60); RDW 18.1 % (11.9-15.9); WHITE BLOOD COUNT 12.2 K/mm3 (4.0-10.0)
[2021-08-28 08:46] LABS: INR 1.27 (0.83-1.09); PROTHROMBIN TIME (PATIENT) 14.6 SEC (9.7-13.0)
[2021-08-28 08:49] LABS: ACTIVATED PTT 27.4 SECONDS (25.2-36.5)
[2021-08-28 09:03] LABS: CALCIUM 8.2 mg/dL (8.5-10.1)
[2021-08-28 09:04] LABS: ALBUMIN 1.6 g/dl (3.4-5.0); BLOOD UREA NITROGEN 10.2 mg/dL (7-18); MAGNESIUM 2.4 mg/dL (1.8-2.4)
[2021-08-28 09:07] LABS: CREATININE 0.4 mg/dL (0.55-1.3); PHOSPHOROUS 2.2 mg/dL (2.5-4.9)
[2021-08-28 09:08] LABS: BILIRUBIN,TOTAL 0.6 mg/dL (0.2-1); TOT PROT 4.8 g/dl (6.4-8.2)
[2021-08-28] MEDS: AMINO ACIDS/PROTEIN HYDROLYS 30 ML LIQUID.PKT PO SCH ×2 (09:13→18:00)
[2021-08-28] MEDS: CHLORHEXIDINE GLUCONATE 0.12% 15ML CUP MM SCH ×2 (09:17→21:51)
[2021-08-28] MEDS: POTASSIUM CHLORIDE ORAL LIQUID 20 MEQ/15 ML PO SCH ×2 (12:04→21:51)
[2021-08-28] MEDS: dilTIAZem HCL 50 MG/10 ML - 10 ML VIAL IVPUSH PRN (13:20)
[2021-08-28] MEDS ORDERED: SODIUM PHOSPHATE - 15 MM in DEXTROSE 5%-WATER - 250 ML IVPB ONE (16:06)
[2021-08-28] MEDS ORDERED: GLUCAGON 1 MG KIT IVPUSH ONE (16:07)
[2021-08-28] MEDS ORDERED: LEVALBUTEROL HCL 0.63 MG/3 ML VIAL.NEB. IH PRN (21:02)
[2021-08-28] MEDS: ATORVASTATIN CA 40 MG TABLET (FP) NGT SCH (21:51)
[2021-08-28] MEDS: LEVALBUTEROL HCL 0.63 MG/3 ML VIAL.NEB. IH PRN (22:18)
[2021-08-29] MEDS ORDERED: SODIUM CHLORIDE FOR INHALATION 3 ML VIAL.NEB IH ONE (00:44)
[2021-08-29] MEDS: PIPERACILLIN/TAZOB 3.375 GM 3.375 GM in DEXTROSE 5%-WATER - 50 ML IVPB SCH ×3 (01:35→17:17)
[2021-08-29] MEDS: [UNRECOGNIZED DRUG - OTHER] IV SCH (01:35)
[2021-08-29] MEDS: POTASSIUM PHOSPHATE IV SCH (01:35)
[2021-08-29] MEDS: AMINO ACIDS IV SCH (01:35)
[2021-08-29] MEDS: POTASSIUM CHLORIDE IV SCH (01:35)
[2021-08-29] MEDS ORDERED: DEXTROSE 5%-WATER - 50 ML IVPB ONE ×3 (01:36→17:28)
[2021-08-29] MEDS ORDERED: PIPERACILLIN/TAZOBACTAM 3.375 GM VIAL IVPB ONE ×3 (01:36→17:28)
[2021-08-29] MEDS: dilTIAZem HCL 60 MG TABLET GT SCH ×3 (05:39→17:17)
[2021-08-29] MEDS: NAPH,MB-DB/K PH,MBDB POWDER PACKET PO SCH ×3 (05:39→21:41)
[2021-08-29 06:39] LABS: HEMOGLOBIN 8.2 GM/dL (11.7-16.9); MCH 28.7 pg (25.7-33.7); MCHC 34.2 g/dl (32.0-35.9); MEAN PLT VOLUME 7.2 fl (7.5-11.1); PLATELET COUNT 502 10^3/uL (134-434); RBC 2.86 M/mm3 (4.00-5.60); RDW 18.6 % (11.9-15.9); WHITE BLOOD COUNT 10.9 K/mm3 (4.0-10.0)
[2021-08-29 06:54] LABS: CALCIUM 8.2 mg/dL (8.5-10.1)
[2021-08-29 06:55] LABS: ALBUMIN 1.6 g/dl (3.4-5.0); BLOOD UREA NITROGEN 10.9 mg/dL (7-18)
[2021-08-29 06:58] LABS: CREATININE 0.4 mg/dL (0.55-1.3); PHOSPHOROUS 2.7 mg/dL (2.5-4.9)
[2021-08-29 06:59] LABS: TOT PROT 4.4 g/dl (6.4-8.2)
[2021-08-29 07:00] LABS: BILIRUBIN,TOTAL 0.6 mg/dL (0.2-1)
[2021-08-29] MEDS: SODIUM CHLORIDE 1,000 ML IV SCH ×2 (08:34→20:45)
[2021-08-29] MEDS: AMINO ACIDS/PROTEIN HYDROLYS 30 ML LIQUID.PKT PO SCH ×2 (08:35→17:17)
[2021-08-29] MEDS: LEVALBUTEROL HCL 0.63 MG/3 ML VIAL.NEB. IH PRN ×2 (08:45→15:45)
[2021-08-29] MEDS: POTASSIUM CHLORIDE ORAL LIQUID 20 MEQ/15 ML PO SCH (09:29)
[2021-08-29] MEDS: CHLORHEXIDINE GLUCONATE 0.12% 15ML CUP MM SCH ×2 (09:29→21:41)
[2021-08-29] MEDS ORDERED: TAMSULOSIN HCL 0.4 MG CAP PO SCH (15:22)
[2021-08-29] MEDS ORDERED: TAMSULOSIN HCL 0.4 MG CAP PO ONE (15:43)
[2021-08-29] MEDS ORDERED: POTASSIUM PHOSPHATE IV SCH (18:00)
[2021-08-29] MEDS ORDERED: POTASSIUM CHLORIDE IV SCH (18:00)
[2021-08-29] MEDS ORDERED: [UNRECOGNIZED DRUG - OTHER] IV SCH (18:00)
[2021-08-29] MEDS ORDERED: AMINO ACIDS IV SCH (18:00)
[2021-08-29 18:23] LABS: CSF APPEARANCE SL.CLOUDY (CLEAR); CSF COLOR PINK (COLORLESS); CSF WBC 0 mm3 (0-5)
[2021-08-29] MEDS: ENOXAPARIN NA (PORCINE) 60 MG/0.6 ML DISP.SYRIN SQ SCH (21:41)
[2021-08-29] MEDS: ATORVASTATIN CA 40 MG TABLET (FP) NGT SCH (21:41)
[2021-08-29] MEDS ORDERED: FAT EMULSION/OLIVE/SOY/PHOSPHO 250 ML IV SCH (22:00)
[2021-08-29] MEDS ORDERED: FAT EMULSION/OLIVE/SOY (CLINOLIPID) 250 ML EMULSION IV SCH (22:00)
[2021-08-30] MEDS: dilTIAZem HCL 60 MG TABLET GT SCH ×4 (00:29→17:00)
[2021-08-30] MEDS ORDERED: PIPERACILLIN/TAZOBACTAM 3.375 GM VIAL IVPB ONE ×3 (00:48→16:19)
[2021-08-30] MEDS ORDERED: DEXTROSE 5%-WATER - 50 ML IVPB ONE ×3 (00:48→16:19)
[2021-08-30] MEDS: PIPERACILLIN/TAZOB 3.375 GM 3.375 GM in DEXTROSE 5%-WATER - 50 ML IVPB SCH ×3 (01:38→17:03)
[2021-08-30] MEDS: NAPH,MB-DB/K PH,MBDB POWDER PACKET PO SCH ×3 (05:49→21:41)
[2021-08-30 07:06] LABS: HEMATOCRIT 26.3 % (35.4-49); HEMOGLOBIN 8.8 GM/dL (11.7-16.9); MCH 28.6 pg (25.7-33.7); MCHC 33.6 g/dl (32.0-35.9); MEAN CELL VOLUME 85.4 fl (80-96); MEAN PLT VOLUME 6.9 fl (7.5-11.1); PLATELET COUNT 516 10^3/uL (134-434); RBC 3.09 M/mm3 (4.00-5.60); RDW 19.3 % (11.9-15.9); WHITE BLOOD COUNT 10.8 K/mm3 (4.0-10.0)
[2021-08-30] MEDS: SODIUM CHLORIDE 1,000 ML IV SCH (07:15)
[2021-08-30 07:38] LABS: CHOLESTEROL 87 mg/dL (50-200); TRIGLYCERIDES 105 mg/dL (0-150)
[2021-08-30 07:39] LABS: LDL CHOLESTEROL (ONLY SJRH) 60 mg/dL (5-100)
[2021-08-30 07:42] LABS: HDL CHOLESTEROL 19 mg/dL (40-60)
[2021-08-30 07:46] LABS: ALBUMIN 1.7 g/dl (3.4-5.0); CALCIUM 7.9 mg/dL (8.5-10.1)
[2021-08-30 07:47] LABS: BLOOD UREA NITROGEN 8.5 mg/dL (7-18)
[2021-08-30 07:50] LABS: CREATININE 0.4 mg/dL (0.55-1.3)
[2021-08-30 07:51] LABS: BILIRUBIN,TOTAL 0.9 mg/dL (0.2-1)
[2021-08-30 07:52] LABS: TOT PROT 4.8 g/dl (6.4-8.2)
[2021-08-30] MEDS: ACETAMINOPHEN 650 MG/20.3 ML ORAL SOLUTION (CUPS) GT PRN ×2 (10:31→16:58)
[2021-08-30] MEDS: AMINO ACIDS/PROTEIN HYDROLYS 30 ML LIQUID.PKT PO SCH ×2 (10:31→16:58)
[2021-08-30] MEDS: CHLORHEXIDINE GLUCONATE 0.12% 15ML CUP MM SCH ×2 (10:31→21:40)
[2021-08-30] MEDS: TAMSULOSIN HCL 0.4 MG CAP PO SCH ×3 (10:45→21:41)
[2021-08-30] MEDS: ENOXAPARIN NA (PORCINE) 60 MG/0.6 ML DISP.SYRIN SQ SCH ×2 (10:46→21:40)
[2021-08-30] MEDS ORDERED: FINASTERIDE 5 MG TABLET (FP) PO SCH ×2 (15:45→21:16)
[2021-08-30] MEDS: POTASSIUM CHLORIDE IV SCH (19:49)
[2021-08-30] MEDS: POTASSIUM PHOSPHATE IV SCH (19:49)
[2021-08-30] MEDS: AMINO ACIDS IV SCH (19:49)
[2021-08-30] MEDS: [UNRECOGNIZED DRUG - OTHER] IV SCH (19:49)
[2021-08-30] MEDS: VANCOMYCIN/WATER FOR INJ (PEG) 1,000 MG/200 ML BAG IVPB SCH (21:40)
[2021-08-30] MEDS: ATORVASTATIN CA 40 MG TABLET (FP) NGT SCH (21:40)
[2021-08-31] MEDS ORDERED: PIPERACILLIN/TAZOBACTAM 3.375 GM VIAL IVPB ONE ×3 (00:28→17:45)
[2021-08-31] MEDS ORDERED: DEXTROSE 5%-WATER - 50 ML IVPB ONE ×3 (00:28→17:46)
[2021-08-31] MEDS: dilTIAZem HCL 60 MG TABLET GT SCH ×4 (00:52→17:53)
[2021-08-31] MEDS: PIPERACILLIN/TAZOB 3.375 GM 3.375 GM in DEXTROSE 5%-WATER - 50 ML IVPB SCH ×3 (01:01→17:53)
[2021-08-31] MEDS: NAPH,MB-DB/K PH,MBDB POWDER PACKET PO SCH ×3 (05:56→21:36)
[2021-08-31 07:03] LABS: HEMATOCRIT 24.1 % (35.4-49); MCH 28.4 pg (25.7-33.7); MCHC 33.3 g/dl (32.0-35.9); MEAN CELL VOLUME 85.4 fl (80-96); MEAN PLT VOLUME 7.2 fl (7.5-11.1); PLATELET COUNT 508 10^3/uL (134-434); RBC 2.83 M/mm3 (4.00-5.60); RDW 18.7 % (11.9-15.9); WHITE BLOOD COUNT 9.9 K/mm3 (4.0-10.0)
[2021-08-31 07:26] LABS: CALCIUM 7.8 mg/dL (8.5-10.1)
[2021-08-31 07:27] LABS: ALBUMIN 1.6 g/dl (3.4-5.0); MAGNESIUM 1.8 mg/dL (1.8-2.4)
[2021-08-31 07:30] LABS: CREATININE 0.4 mg/dL (0.55-1.3); PHOSPHOROUS 3.2 mg/dL (2.5-4.9)
[2021-08-31 07:31] LABS: BILIRUBIN,TOTAL 0.6 mg/dL (0.2-1); TOT PROT 4.6 g/dl (6.4-8.2)
[2021-08-31] MEDS: AMINO ACIDS/PROTEIN HYDROLYS 30 ML LIQUID.PKT PO SCH ×2 (09:17→17:53)
[2021-08-31] MEDS: TAMSULOSIN HCL 0.4 MG CAP PO SCH (09:18)
[2021-08-31] MEDS: ENOXAPARIN NA (PORCINE) 60 MG/0.6 ML DISP.SYRIN SQ SCH ×2 (09:18→21:36)
[2021-08-31] MEDS: CHLORHEXIDINE GLUCONATE 0.12% 15ML CUP MM SCH ×2 (09:26→21:36)
[2021-08-31] MEDS ORDERED: FINASTERIDE 5 MG TABLET (FP) NR SCH (09:28)
[2021-08-31] MEDS ORDERED: KCL 10 MEQ IVPB 10 MEQ/100 ML INFUS.BAG IVPB SCH (10:00)
[2021-08-31] MEDS: FINASTERIDE 5 MG TABLET (FP) NR SCH (12:08)
[2021-08-31] MEDS: ACETAMINOPHEN 650 MG/20.3 ML ORAL SOLUTION (CUPS) GT PRN (13:37)
[2021-08-31] MEDS: DOXAZOSIN MESYLATE 1 MG TABLET PEG SCH (17:53)
[2021-08-31] MEDS ORDERED: COD LIVER OIL/ZINC OXIDE PASTE 56 GM TUBE TP PRN (19:08)
[2021-08-31] MEDS ORDERED: ALBUTEROL SO4 0.083% IH SOL 2.5 MG/3 ML VIAL.NEB. NEB PRN (19:16)
[2021-08-31] MEDS: ALBUTEROL SO4 2.5/IPRATROPIUM 0.5 INH SOL 3 ML VIAL.NEB. NEB SCH (20:00)
[2021-08-31] MEDS: VANCOMYCIN/WATER FOR INJ (PEG) 1,000 MG/200 ML BAG IVPB SCH (20:15)
[2021-08-31] MEDS: ATORVASTATIN CA 40 MG TABLET (FP) NGT SCH (21:35)
[2021-08-31] MEDS: BANATROL PLUS POWDER PACKET GT SCH (21:36)
[2021-09-01] MEDS: dilTIAZem HCL 60 MG TABLET GT SCH ×5 (00:45→23:31)
[2021-09-01] MEDS ORDERED: DEXTROSE 5%-WATER - 50 ML IVPB ONE ×3 (00:58→17:18)
[2021-09-01] MEDS ORDERED: PIPERACILLIN/TAZOBACTAM 3.375 GM VIAL IVPB ONE ×3 (00:58→17:18)
[2021-09-01] MEDS: PIPERACILLIN/TAZOB 3.375 GM 3.375 GM in DEXTROSE 5%-WATER - 50 ML IVPB SCH ×3 (01:05→17:25)
[2021-09-01] MEDS: BANATROL PLUS POWDER PACKET GT SCH ×3 (05:38→21:54)
[2021-09-01] MEDS: NAPH,MB-DB/K PH,MBDB POWDER PACKET PO SCH ×3 (05:49→21:54)
[2021-09-01] MEDS: ALBUTEROL SO4 2.5/IPRATROPIUM 0.5 INH SOL 3 ML VIAL.NEB. NEB SCH ×4 (07:43→20:20)
[2021-09-01 08:50] LABS: HEMATOCRIT 25.2 % (35.4-49); HEMOGLOBIN 8.4 GM/dL (11.7-16.9); MCHC 33.3 g/dl (32.0-35.9); MEAN PLT VOLUME 7.1 fl (7.5-11.1); PLATELET COUNT 465 10^3/uL (134-434); RDW 18.9 % (11.9-15.9); WHITE BLOOD COUNT 8.2 K/mm3 (4.0-10.0)
[2021-09-01 09:01] LABS: CALCIUM 7.8 mg/dL (8.5-10.1)
[2021-09-01 09:02] LABS: ALBUMIN 1.4 g/dl (3.4-5.0); BLOOD UREA NITROGEN 9.4 mg/dL (7-18)
[2021-09-01 09:05] LABS: CREATININE 0.4 mg/dL (0.55-1.3); PHOSPHOROUS 3.3 mg/dL (2.5-4.9)
[2021-09-01 09:06] LABS: BILIRUBIN,TOTAL 0.6 mg/dL (0.2-1)
[2021-09-01 09:07] LABS: TOT PROT 4.3 g/dl (6.4-8.2)
[2021-09-01] MEDS: AMINO ACIDS/PROTEIN HYDROLYS 30 ML LIQUID.PKT PO SCH ×2 (09:42→17:25)
[2021-09-01] MEDS: CHLORHEXIDINE GLUCONATE 0.12% 15ML CUP MM SCH ×2 (09:42→21:53)
[2021-09-01] MEDS: ENOXAPARIN NA (PORCINE) 60 MG/0.6 ML DISP.SYRIN SQ SCH ×2 (09:42→21:54)
[2021-09-01] MEDS: DOXAZOSIN MESYLATE 1 MG TABLET PEG SCH (09:45)
[2021-09-01] MEDS: FINASTERIDE 5 MG TABLET (FP) NR SCH (11:31)
[2021-09-01] MEDS: VANCOMYCIN/WATER FOR INJ (PEG) 1,000 MG/200 ML BAG IVPB SCH (20:07)
[2021-09-01] MEDS: ATORVASTATIN CA 40 MG TABLET (FP) NGT SCH (21:54)
[2021-09-02] MEDS ORDERED: PIPERACILLIN/TAZOBACTAM 3.375 GM VIAL IVPB ONE ×3 (00:27→17:10)
[2021-09-02] MEDS ORDERED: DEXTROSE 5%-WATER - 50 ML IVPB ONE ×3 (00:28→17:10)
[2021-09-02] MEDS: PIPERACILLIN/TAZOB 3.375 GM 3.375 GM in DEXTROSE 5%-WATER - 50 ML IVPB SCH ×3 (01:00→17:16)
[2021-09-02] MEDS: BANATROL PLUS POWDER PACKET GT SCH ×3 (05:51→21:59)
[2021-09-02] MEDS: NAPH,MB-DB/K PH,MBDB POWDER PACKET PO SCH ×3 (05:51→22:00)
[2021-09-02] MEDS: dilTIAZem HCL 60 MG TABLET GT SCH ×4 (05:52→23:57)
[2021-09-02 07:59] LABS: HEMATOCRIT 25.6 % (35.4-49); HEMOGLOBIN 8.4 GM/dL (11.7-16.9); MCH 27.7 pg (25.7-33.7); MCHC 32.8 g/dl (32.0-35.9); MEAN CELL VOLUME 84.5 fl (80-96); MEAN PLT VOLUME 7.2 fl (7.5-11.1); PLATELET COUNT 477 10^3/uL (134-434); RBC 3.02 M/mm3 (4.00-5.60); RDW 18.9 % (11.9-15.9); WHITE BLOOD COUNT 7.8 K/mm3 (4.0-10.0)
[2021-09-02 08:13] LABS: ALBUMIN 1.6 g/dl (3.4-5.0); CALCIUM 8.1 mg/dL (8.5-10.1)
[2021-09-02 08:14] LABS: BLOOD UREA NITROGEN 10.8 mg/dL (7-18); MAGNESIUM 2.1 mg/dL (1.8-2.4)
[2021-09-02] MEDS: ALBUTEROL SO4 2.5/IPRATROPIUM 0.5 INH SOL 3 ML VIAL.NEB. NEB SCH ×4 (08:15→20:30)
[2021-09-02 08:16] LABS: CREATININE 0.4 mg/dL (0.55-1.3)
[2021-09-02 08:17] LABS: BILIRUBIN,TOTAL 0.3 mg/dL (0.2-1)
[2021-09-02 08:19] LABS: TOT PROT 4.6 g/dl (6.4-8.2)
[2021-09-02] MEDS ORDERED: HEPARIN - 25,000 UNIT in SODIUM CHLORIDE 495 ML IV SCH (10:00)
[2021-09-02] MEDS: AMINO ACIDS/PROTEIN HYDROLYS 30 ML LIQUID.PKT PO SCH (10:19)
[2021-09-02] MEDS: CHLORHEXIDINE GLUCONATE 0.12% 15ML CUP MM SCH ×2 (10:19→22:00)
[2021-09-02] MEDS: FINASTERIDE 5 MG TABLET (FP) NR SCH (10:20)
[2021-09-02] MEDS: DOXAZOSIN MESYLATE 1 MG TABLET PEG SCH (12:17)
[2021-09-02 18:31] LABS: ACTIVATED PTT 38.6 SECONDS (25.2-36.5); INR 1.22 (0.83-1.09); PROTHROMBIN TIME (PATIENT) 14.1 SEC (9.7-13.0)
[2021-09-02] MEDS: VANCOMYCIN/WATER FOR INJ (PEG) 1,000 MG/200 ML BAG IVPB SCH (19:01)
[2021-09-02] MEDS: ATORVASTATIN CA 40 MG TABLET (FP) NGT SCH (21:59)
[2021-09-02] MEDS: APIXABAN 5 MG TABLET PO SCH (22:00)
[2021-09-03] MEDS ORDERED: PIPERACILLIN/TAZOBACTAM 3.375 GM VIAL IVPB ONE ×2 (00:40→10:04)
[2021-09-03] MEDS ORDERED: DEXTROSE 5%-WATER - 50 ML IVPB ONE ×2 (00:40→10:04)
[2021-09-03] MEDS: PIPERACILLIN/TAZOB 3.375 GM 3.375 GM in DEXTROSE 5%-WATER - 50 ML IVPB SCH ×2 (01:08→10:06)
[2021-09-03] MEDS: NAPH,MB-DB/K PH,MBDB POWDER PACKET PO SCH ×3 (06:06→21:35)
[2021-09-03] MEDS: BANATROL PLUS POWDER PACKET GT SCH ×3 (06:06→21:35)
[2021-09-03] MEDS: dilTIAZem HCL 60 MG TABLET GT SCH ×3 (06:06→17:23)
[2021-09-03 07:50] LABS: HEMATOCRIT 26.4 % (35.4-49); HEMOGLOBIN 8.9 GM/dL (11.7-16.9); MCH 28.4 pg (25.7-33.7); MCHC 33.5 g/dl (32.0-35.9); MEAN CELL VOLUME 84.7 fl (80-96); MEAN PLT VOLUME 7.2 fl (7.5-11.1); PLATELET COUNT 496 10^3/uL (134-434); RBC 3.12 M/mm3 (4.00-5.60); RDW 18.8 % (11.9-15.9); WHITE BLOOD COUNT 8.8 K/mm3 (4.0-10.0)
[2021-09-03] MEDS: ALBUTEROL SO4 2.5/IPRATROPIUM 0.5 INH SOL 3 ML VIAL.NEB. NEB SCH ×4 (08:35→20:28)
[2021-09-03] MEDS: DOXAZOSIN MESYLATE 1 MG TABLET PEG SCH (10:06)
[2021-09-03] MEDS: FINASTERIDE 5 MG TABLET (FP) NR SCH (10:06)
[2021-09-03] MEDS: CHLORHEXIDINE GLUCONATE 0.12% 15ML CUP MM SCH ×2 (10:06→21:35)
[2021-09-03] MEDS: APIXABAN 5 MG TABLET PO SCH ×2 (10:06→21:35)
[2021-09-03 13:09] LABS: SARS-CoV-2 NAA Not Detected (Not Detected)
[2021-09-03] MEDS ORDERED: IRON SUCROSE INJECTION 200 MG in SODIUM CHLORIDE 90 ML IVPB ONE (14:15)
[2021-09-03] MEDS: dilTIAZem HCL 50 MG/10 ML - 10 ML VIAL IVPUSH PRN (16:39)
[2021-09-03] MEDS: DOXYCYCLINE MONOHYDRATE 25 MG/5 ML SUSPENSION PO SCH (17:23)
[2021-09-03] MEDS: ATORVASTATIN CA 40 MG TABLET (FP) NGT SCH (21:35)
[2021-09-04] MEDS: dilTIAZem HCL 60 MG TABLET GT SCH ×4 (00:39→18:15)
[2021-09-04] MEDS ORDERED: LORazepam 2 MG/ML SDV VIAL IVPUSH PRN (02:11)
[2021-09-04] MEDS: BANATROL PLUS POWDER PACKET GT SCH ×2 (05:07→14:28)
[2021-09-04] MEDS: NAPH,MB-DB/K PH,MBDB POWDER PACKET PO SCH ×3 (05:07→22:28)
[2021-09-04 06:25] LABS: HEMATOCRIT 28.3 % (35.4-49); HEMOGLOBIN 9.5 GM/dL (11.7-16.9); MCH 28.3 pg (25.7-33.7); MCHC 33.7 g/dl (32.0-35.9); PLATELET COUNT 472 10^3/uL (134-434); RBC 3.36 M/mm3 (4.00-5.60); RDW 19.2 % (11.9-15.9); WHITE BLOOD COUNT 8.9 K/mm3 (4.0-10.0)
[2021-09-04 06:37] LABS: BLOOD UREA NITROGEN 8.6 mg/dL (7-18)
[2021-09-04 06:40] LABS: CREATININE 0.4 mg/dL (0.55-1.3)
[2021-09-04 06:42] LABS: BILIRUBIN,TOTAL 0.4 mg/dL (0.2-1); TOT PROT 5.2 g/dl (6.4-8.2)
[2021-09-04 06:43] LABS: ALBUMIN 2.1 g/dl (3.4-5.0)
[2021-09-04] MEDS ORDERED: IRON SUCROSE INJECTION 200 MG in SODIUM CHLORIDE 90 ML IVPB ONE (08:00)
[2021-09-04] MEDS: ALBUTEROL SO4 2.5/IPRATROPIUM 0.5 INH SOL 3 ML VIAL.NEB. NEB SCH ×4 (08:10→20:00)
[2021-09-04] MEDS: CHLORHEXIDINE GLUCONATE 0.12% 15ML CUP MM SCH ×2 (11:13→22:17)
[2021-09-04] MEDS: DOXAZOSIN MESYLATE 1 MG TABLET PEG SCH (11:14)
[2021-09-04] MEDS: FINASTERIDE 5 MG TABLET (FP) NR SCH (11:14)
[2021-09-04] MEDS: APIXABAN 5 MG TABLET PO SCH ×2 (11:14→22:16)
[2021-09-04] MEDS: DOXYCYCLINE MONOHYDRATE 25 MG/5 ML SUSPENSION PO SCH ×2 (11:14→18:20)
[2021-09-04] MEDS ORDERED: HALOPERIDOL LACTATE 5 MG/ML IM ONE (15:38)
[2021-09-04] MEDS: ATORVASTATIN CA 40 MG TABLET (FP) NGT SCH (22:16)
[2021-09-05] MEDS: dilTIAZem HCL 60 MG TABLET GT SCH ×3 (00:40→12:32)
[2021-09-05] MEDS: NAPH,MB-DB/K PH,MBDB POWDER PACKET PO SCH ×2 (05:42→13:58)
[2021-09-05] MEDS: ALBUTEROL SO4 2.5/IPRATROPIUM 0.5 INH SOL 3 ML VIAL.NEB. NEB SCH ×2 (07:25→11:20)
[2021-09-05 07:27] LABS: HEMOGLOBIN 9.6 GM/dL (11.7-16.9); MCH 28.1 pg (25.7-33.7); MEAN CELL VOLUME 85.1 fl (80-96); MEAN PLT VOLUME 7.3 fl (7.5-11.1); PLATELET COUNT 501 10^3/uL (134-434); RBC 3.41 M/mm3 (4.00-5.60); RDW 19.7 % (11.9-15.9); WHITE BLOOD COUNT 8.9 K/mm3 (4.0-10.0)
[2021-09-05 07:58] LABS: CALCIUM 8.8 mg/dL (8.5-10.1)
[2021-09-05 07:59] LABS: BLOOD UREA NITROGEN 11.5 mg/dL (7-18)
[2021-09-05 08:02] LABS: CREATININE 0.4 mg/dL (0.55-1.3)
[2021-09-05 08:04] LABS: BILIRUBIN,TOTAL 0.5 mg/dL (0.2-1); TOT PROT 5.4 g/dl (6.4-8.2)
[2021-09-05] MEDS ORDERED: IRON SUCROSE INJECTION 200 MG in SODIUM CHLORIDE 90 ML IVPB ONE (10:05)
[2021-09-05] MEDS: DOXYCYCLINE MONOHYDRATE 25 MG/5 ML SUSPENSION PO SCH (10:25)
[2021-09-05] MEDS: CHLORHEXIDINE GLUCONATE 0.12% 15ML CUP MM SCH (10:25)
[2021-09-05] MEDS: FINASTERIDE 5 MG TABLET (FP) NR SCH (10:25)
[2021-09-05] MEDS: APIXABAN 5 MG TABLET PO SCH (10:26)
[2021-09-05 10:37] VITALS: BP 105/57; PULSE 114; TEMP 97.8
[2021-09-05] MEDS: DOXAZOSIN MESYLATE 1 MG TABLET PEG SCH (11:12)
[2021-09-05] MEDS ORDERED: dilTIAZem HCL 30 MG TABLET PO ONE (13:30)
[2021-09-05] MEDS ORDERED: dilTIAZem HCL 60 MG TABLET GT SCH (13:32)
== END 2021-09-05 15:35 | DRG 308 ==
LOC: JER 17:38 → JERBED 08-14 00:13 → J4S 08-15 20:02
PROVIDERS: ADMIT Hospitalist; ATTEND Internal Medicine
PROC: 0DH67UZ Insertion of Feeding Device into Stomach, Via Natural or Artificial Opening (ICD-10-PCS; principal; 2021-08-16)
PROC: 0DH63UZ Insertion of Feeding Device into Stomach, Percutaneous Approach (ICD-10-PCS; 2021-08-28)
PROC: 3E0G76Z Introduction of Nutritional Substance into Upper GI, Via Natural or Artificial Opening (ICD-10-PCS; 2021-08-28)
PROC: 009U3ZZ Drainage of Spinal Canal, Percutaneous Approach (ICD-10-PCS; 2021-08-30)
DX: I48.19 Other persistent atrial fibrillation (principal); G93.41 Metabolic encephalopathy; E43 Unspecified severe protein-calorie malnutrition; J69.0 Pneumonitis due to inhalation of food and vomit; A41.89 Other specified sepsis; E87.2 Acidosis; R64 Cachexia; Z68.1 Body mass index [BMI] 19.9 or less, adult; E87.0 Hyperosmolality and hypernatremia; N17.9 Acute kidney failure, unspecified; F13.20 Sedative, hypnotic or anxiolytic dependence, uncomplicated; E51.2 Wernicke's encephalopathy; R00.0 Tachycardia, unspecified; I95.9 Hypotension, unspecified; I48.91 Unspecified atrial fibrillation; E86.0 Dehydration; R41.82 Altered mental status, unspecified; F41.9 Anxiety disorder, unspecified; E87.6 Hypokalemia; R31.9 Hematuria, unspecified; I10 Essential (primary) hypertension; H26.9 Unspecified cataract; D63.8 Anemia in other chronic diseases classified elsewhere; D50.9 Iron deficiency anemia, unspecified; R13.10 Dysphagia, unspecified; D72.829 Elevated white blood cell count, unspecified; D69.6 Thrombocytopenia, unspecified; E83.42 Hypomagnesemia; F03.90 Unspecified dementia, unspecified severity, without behavioral disturbance, psychotic disturbance, mood disturbance, and anxiety; E83.39 Other disorders of phosphorus metabolism; R33.9 Retention of urine, unspecified; W18.30XA Fall on same level, unspecified, initial encounter; Z86.73 Personal history of transient ischemic attack (TIA), and cerebral infarction without residual deficits; Y92.098 Other place in other non-institutional residence as the place of occurrence of the external cause
CPT/HCPCS: 36415; 36430; 36511; 36600; 49440; 70450-TC; 70551-TC; 71045-TC-FY; 71250-TC; 72125-TC; 74018-TC-FY; 74176-TC; 74230-TC-FY; 80048; 80053; 80061; 80307; 81003; 82140; 82248; 82272; 82550; 82607; 82728; 82803; 83036; 83540; 83550; 83605; 83735; 84100; 84425; 84443; 84484; 85025; 85027; 85610; 85730; 86592; 86780; 86850; 86900; 86901; 86922; 87040; 87070; 87086; 87116; 87186; 87205; 87389; 87556; 87899; 92611-GN; 93005; 93010; 93306-TC; 93308; 93880-TC; 94640; 97116-GP; 97161-GP; 99285-25; C9803-CS; G0480; J1644; J1756; P9016; U0003; U0005

== ENCOUNTER 2021-09-19 15:20 | Inpatient (IN) | payer OTHER ==
[2021-09-19] MEDS ORDERED: LACTATED RINGERS SOLUTION 1000 ML INFUS.BAG IV ONE ×2 (15:49→17:20)
[2021-09-19 16:49] LABS: BASO % 0.7 % (0-2.0); EOS % 3.8 % (0-4.5); HEMATOCRIT 29.3 % (35.4-49); HEMOGLOBIN 9.5 GM/dL (11.7-16.9); LYMPH % 5.9 % (8-40); MCH 27.6 pg (25.7-33.7); MCHC 32.4 g/dl (32.0-35.9); MEAN CELL VOLUME 85.1 fl (80-96); MEAN PLT VOLUME 8.6 fl (7.5-11.1); MONO % 5.1 % (3.8-10.2); NEUT % 84.5 % (42.8-82.8); PLATELET COUNT 318 10^3/uL (134-434); RBC 3.45 M/mm3 (4.00-5.60); RDW 19.6 % (11.9-15.9); VENOUS PCO2 42.7 mmHg (38-52); VENOUS PH 7.372 (7.310-7.410); WHITE BLOOD COUNT 12.8 K/mm3 (4.0-10.0)
[2021-09-19 16:50] LABS: INR 1.38 (0.83-1.09); PROTHROMBIN TIME (PATIENT) 15.9 SEC (9.7-13.0)
[2021-09-19 16:53] LABS: ACTIVATED PTT 29.1 SECONDS (25.2-36.5)
[2021-09-19 17:01] LABS: CALCIUM 8.9 mg/dL (8.5-10.1)
[2021-09-19 17:02] LABS: ALBUMIN 2.3 g/dl (3.4-5.0); BLOOD UREA NITROGEN 10.6 mg/dL (7-18); MAGNESIUM 2.1 mg/dL (1.8-2.4)
[2021-09-19 17:05] LABS: CREATININE 0.5 mg/dL (0.55-1.3)
[2021-09-19 17:06] LABS: BILIRUBIN,TOTAL 0.4 mg/dL (0.2-1); TOT PROT 5.1 g/dl (6.4-8.2)
[2021-09-19 17:08] LABS: LACTIC ACID 2.1 mmol/L (0.4-2.0)
[2021-09-19] MEDS ORDERED: PANTOPRAZOLE SODIUM 40 MG VIAL IVPUSH ONE (17:20)
[2021-09-19] MEDS ORDERED: PANTOPRAZOLE SODIUM 40 MG VIAL ONE (17:34)
[2021-09-19 17:44] LABS: EPI CELLS >36 /uL (0-25.1); HYALINE CASTS 5 /uL (0-3.1); PH,URINE 7.5 (5.0-8.0); URINE APPEARANCE CLOUDY; URINE BACTERIA 44 /uL (0-1359); URINE BILIRUBIN NEGATIVE (NEGATIVE); URINE COLOR YELLOW; URINE GLUCOSE (UA) NEGATIVE (NEGATIVE); URINE KETONE NEGATIVE (NEGATIVE); URINE LEUK ESTERASE 3+ (NEGATIVE); URINE NITRITE NEGATIVE (NEGATIVE); URINE PROTEIN TRACE (NEGATIVE); URINE RBC 105 /uL (0-23.9); URINE WBC 316 /uL (0-25.8)
[2021-09-19] MEDS ORDERED: CEFTRIAXONE 1 GM in DEXTROSE 5%-WATER - 100 ML IVPB ONE (18:23)
[2021-09-19] MEDS ORDERED: CEFTRIAXONE 1 GM/50 ML BAG ONE (18:31)
[2021-09-19] MEDS ORDERED: LACTATED RINGERS SOLUTION 1,000 ML/1,000 ML INFUS.BAG IV STA (20:31)
[2021-09-19] MEDS ORDERED: SODIUM CHLORIDE 0.9% 500 ML INFUS.BAG IV ONE (20:31)
[2021-09-19] MEDS ORDERED: PIPERACILLIN/TAZOB 4.5 GM 4.5 GM in DEXTROSE 5%-WATER 100 ML IVPB ONE (21:42)
[2021-09-19] MEDS ORDERED: PIPERACILLIN/TAZOB 4.5 GM 4.5 GM/100 ML BAG IVPB ONE (22:11)
[2021-09-19] MEDS ORDERED: SODIUM CHLORIDE 1,000 ML IV SCH (22:15)
[2021-09-19] MEDS: SODIUM CHLORIDE 1,000 ML IV SCH (22:46)
[2021-09-20] MEDS ORDERED: SODIUM CHLORIDE 250 ML IV STA ×2 (00:17→21:12)
[2021-09-20 07:06] LABS: BASO % 0.4 % (0-2.0); EOS % 9.7 % (0-4.5); HEMATOCRIT 27.1 % (35.4-49); HEMOGLOBIN 8.9 GM/dL (11.7-16.9); LYMPH % 5.3 % (8-40); MEAN CELL VOLUME 84.8 fl (80-96); MEAN PLT VOLUME 8.7 fl (7.5-11.1); MONO % 5.3 % (3.8-10.2); NEUT % 79.3 % (42.8-82.8); PLATELET COUNT 271 10^3/uL (134-434); RBC 3.19 M/mm3 (4.00-5.60); RDW 19.8 % (11.9-15.9); WHITE BLOOD COUNT 10.6 K/mm3 (4.0-10.0)
[2021-09-20 07:25] LABS: CALCIUM 8.2 mg/dL (8.5-10.1)
[2021-09-20 07:28] LABS: CREATININE 0.4 mg/dL (0.55-1.3)
[2021-09-20 07:30] LABS: BILIRUBIN,TOTAL 0.4 mg/dL (0.2-1); TOT PROT 4.3 g/dl (6.4-8.2)
[2021-09-20 07:45] LABS: ALBUMIN 1.7 g/dl (3.4-5.0)
[2021-09-20] MEDS ORDERED: PIPERACILLIN/TAZOB 4.5 GM 4.5 GM/100 ML BAG IVPB ONE (08:49)
[2021-09-20] MEDS ORDERED: PIPERACILLIN/TAZOB 4.5 GM 4.5 GM in DEXTROSE 5%-WATER 100 ML IVPB SCH ×2 (09:00→15:00)
[2021-09-20] MEDS ORDERED: DIGOXIN 0.5 MG/2 ML AMPUL IVPUSH ONE (09:31)
[2021-09-20] MEDS: LINEZOLID 600 MG PREMIX BAG 600 MG/300 ML BAG IVPB SCH ×2 (12:43→22:30)
[2021-09-20] MEDS: SODIUM CHLORIDE 1,000 ML IV SCH ×2 (12:49→21:50)
[2021-09-20] MEDS ORDERED: METOPROLOL TARTRATE 5 MG/5 ML VIAL IVPUSH PRN (15:13)
[2021-09-20] MEDS ORDERED: CEFEPIME HCL 1 GM VIAL (RESTRICTED TO ID) ONE (21:45)
[2021-09-20] MEDS ORDERED: DEXTROSE 5%-WATER 100 ML IVPB ONE (21:45)
[2021-09-20] MEDS: CEFEPIME 1 GM in DEXTROSE 5%-WATER 1 GM/100 ML BAG IVPB SCH (22:14)
[2021-09-21] MEDS: SODIUM CHLORIDE 1,000 ML IV SCH ×2 (05:24→16:36)
[2021-09-21 07:43] LABS: BASO % 0.2 % (0-2.0); EOS % 11.3 % (0-4.5); HEMATOCRIT 27.9 % (35.4-49); LYMPH % 5.7 % (8-40); MCH 27.6 pg (25.7-33.7); MCHC 32.3 g/dl (32.0-35.9); MEAN CELL VOLUME 85.4 fl (80-96); MEAN PLT VOLUME 8.3 fl (7.5-11.1); MONO % 4.6 % (3.8-10.2); NEUT % 78.2 % (42.8-82.8); PLATELET COUNT 275 10^3/uL (134-434); RBC 3.26 M/mm3 (4.00-5.60); RETICULOCYTES 3.64 % (0.5-1.5); WHITE BLOOD COUNT 11.4 K/mm3 (4.0-10.0)
[2021-09-21 07:55] LABS: CALCIUM 8.1 mg/dL (8.5-10.1)
[2021-09-21 07:56] LABS: BLOOD UREA NITROGEN 6.8 mg/dL (7-18)
[2021-09-21 07:59] LABS: CREATININE 0.4 mg/dL (0.55-1.3)
[2021-09-21] MEDS ORDERED: CEFEPIME HCL 1 GM VIAL (RESTRICTED TO ID) ONE ×2 (09:20→20:41)
[2021-09-21] MEDS ORDERED: DEXTROSE 5%-WATER 100 ML IVPB ONE ×2 (09:21→20:41)
[2021-09-21] MEDS: LINEZOLID 600 MG PREMIX BAG 600 MG/300 ML BAG IVPB SCH ×2 (09:31→22:13)
[2021-09-21] MEDS: PANTOPRAZOLE SODIUM 40 MG VIAL IVPUSH SCH (09:32)
[2021-09-21] MEDS: CEFEPIME 1 GM in DEXTROSE 5%-WATER 1 GM/100 ML BAG IVPB SCH ×2 (09:32→21:12)
[2021-09-21 14:10] VITALS: BMI 15.9
[2021-09-22] MEDS ORDERED: CEFEPIME HCL 1 GM VIAL (RESTRICTED TO ID) ONE ×2 (08:45→21:25)
[2021-09-22] MEDS ORDERED: DEXTROSE 5%-WATER 100 ML IVPB ONE ×2 (08:46→21:25)
[2021-09-22] MEDS: LINEZOLID 600 MG PREMIX BAG 600 MG/300 ML BAG IVPB SCH ×2 (09:16→21:30)
[2021-09-22] MEDS: PANTOPRAZOLE SODIUM 40 MG VIAL IVPUSH SCH (09:16)
[2021-09-22] MEDS: CEFEPIME 1 GM in DEXTROSE 5%-WATER 1 GM/100 ML BAG IVPB SCH ×2 (09:16→21:30)
[2021-09-22] MEDS: SODIUM CHLORIDE 1,000 ML IV SCH (16:33)
[2021-09-22] MEDS ORDERED: ACETAMINOPHEN 1000 MG/100 ML BAG IVPB ONE (23:31)
[2021-09-23] MEDS ORDERED: CEFEPIME HCL 1 GM VIAL (RESTRICTED TO ID) ONE (09:57)
[2021-09-23] MEDS ORDERED: DEXTROSE 5%-WATER 100 ML IVPB ONE (09:57)
[2021-09-23] MEDS: PANTOPRAZOLE SODIUM 40 MG VIAL IVPUSH SCH (09:59)
[2021-09-23] MEDS: CEFEPIME 1 GM in DEXTROSE 5%-WATER 1 GM/100 ML BAG IVPB SCH (09:59)
[2021-09-23] MEDS: LINEZOLID 600 MG PREMIX BAG 600 MG/300 ML BAG IVPB SCH (10:00)
[2021-09-24] MEDS ORDERED: IRON SUCROSE INJECTION 200 MG in SODIUM CHLORIDE 90 ML IVPB ONE (08:07)
[2021-09-24 09:04] LABS: BASO % 0.4 % (0-2.0); EOS % 11.5 % (0-4.5); HEMATOCRIT 25.5 % (35.4-49); HEMOGLOBIN 8.5 GM/dL (11.7-16.9); MCH 28.4 pg (25.7-33.7); MCHC 33.3 g/dl (32.0-35.9); MEAN CELL VOLUME 85.1 fl (80-96); MEAN PLT VOLUME 7.6 fl (7.5-11.1); MONO % 6.3 % (3.8-10.2); NEUT % 69.8 % (42.8-82.8); PLATELET COUNT 265 10^3/uL (134-434); RDW 19.2 % (11.9-15.9); WHITE BLOOD COUNT 8.5 K/mm3 (4.0-10.0)
[2021-09-24 09:27] LABS: CALCIUM 8.1 mg/dL (8.5-10.1)
[2021-09-24 09:28] LABS: BLOOD UREA NITROGEN 4.6 mg/dL (7-18)
[2021-09-24 09:31] LABS: CREATININE 0.3 mg/dL (0.55-1.3)
[2021-09-24 09:32] LABS: TOT PROT 4.3 g/dl (6.4-8.2)
[2021-09-24 09:33] LABS: BILIRUBIN,TOTAL 0.3 mg/dL (0.2-1)
[2021-09-24] MEDS: TAMSULOSIN HCL 0.4 MG CAP PO SCH (10:08)
[2021-09-24] MEDS: PANTOPRAZOLE SODIUM 40 MG VIAL IVPUSH SCH (10:08)
[2021-09-24] MEDS: METOPROLOL TARTRATE 25 MG TABLET (FP) PO SCH ×2 (10:08→21:52)
[2021-09-24 18:08] LABS: GLIADIN ANTIBODY IGA 10 units (0-19); GLIADIN ANTIBODY IGG 6 units (0-19); TRANSGLUTAMINASE IGG 3 U/mL (0-5)
[2021-09-24] MEDS: ATORVASTATIN CA 40 MG TABLET (FP) NGT SCH (21:53)
[2021-09-25 09:10] LABS: BASO % 0.3 % (0-2.0); EOS % 9.5 % (0-4.5); HEMATOCRIT 27.1 % (35.4-49); HEMOGLOBIN 8.9 GM/dL (11.7-16.9); MCH 28.2 pg (25.7-33.7); MCHC 32.9 g/dl (32.0-35.9); MEAN CELL VOLUME 85.5 fl (80-96); MEAN PLT VOLUME 7.6 fl (7.5-11.1); MONO % 6.2 % (3.8-10.2); PLATELET COUNT 285 10^3/uL (134-434); RBC 3.17 M/mm3 (4.00-5.60); RDW 19.2 % (11.9-15.9); WHITE BLOOD COUNT 9.6 K/mm3 (4.0-10.0)
[2021-09-25 09:52] LABS: ALBUMIN 1.8 g/dl (3.4-5.0); CALCIUM 8.4 mg/dL (8.5-10.1)
[2021-09-25 09:53] LABS: BLOOD UREA NITROGEN 5.3 mg/dL (7-18)
[2021-09-25 09:56] LABS: CREATININE 0.4 mg/dL (0.55-1.3)
[2021-09-25 09:57] LABS: BILIRUBIN,TOTAL 0.3 mg/dL (0.2-1); TOT PROT 4.4 g/dl (6.4-8.2)
[2021-09-25] MEDS: PANTOPRAZOLE SODIUM 40 MG VIAL IVPUSH SCH (10:33)
[2021-09-25] MEDS: TAMSULOSIN HCL 0.4 MG CAP PO SCH (10:33)
[2021-09-25] MEDS: METOPROLOL TARTRATE 25 MG TABLET (FP) PO SCH ×2 (10:33→21:14)
[2021-09-25 19:05] LABS: EPI CELLS >36 /uL (0-25.1); HYALINE CASTS 5 /uL (0-3.1); URINE APPEARANCE CLEAR; URINE BACTERIA 35 /uL (0-1359); URINE BILIRUBIN NEGATIVE (NEGATIVE); URINE COLOR YELLOW; URINE GLUCOSE (UA) NEGATIVE (NEGATIVE); URINE KETONE NEGATIVE (NEGATIVE); URINE LEUK ESTERASE 2+ (NEGATIVE); URINE NITRITE NEGATIVE (NEGATIVE); URINE PROTEIN NEGATIVE (NEGATIVE); URINE RBC 116 /uL (0-23.9); URINE UROBILINOGEN 0.2 mg/dL (0.2-1.0); URINE WBC 443 /uL (0-25.8)
[2021-09-25 19:22] LABS: YEAST NEGATIVE (NEGATIVE)
[2021-09-25] MEDS: ENOXAPARIN NA (PORCINE) 60 MG/0.6 ML DISP.SYRIN SQ SCH (21:14)
[2021-09-25] MEDS: ATORVASTATIN CA 40 MG TABLET (FP) NGT SCH (21:14)
[2021-09-26 08:34] LABS: HEMATOCRIT 28.2 % (35.4-49); HEMOGLOBIN 9.6 GM/dL (11.7-16.9); MCH 28.8 pg (25.7-33.7); MEAN CELL VOLUME 84.9 fl (80-96); MEAN PLT VOLUME 7.3 fl (7.5-11.1); PLATELET COUNT 299 10^3/uL (134-434); RBC 3.32 M/mm3 (4.00-5.60); RDW 19.2 % (11.9-15.9)
[2021-09-26] MEDS: PANTOPRAZOLE SOD 40 MG SUSPENSION PACKET PO SCH (09:50)
[2021-09-26] MEDS: TAMSULOSIN HCL 0.4 MG CAP PO SCH (09:50)
[2021-09-26] MEDS: METOPROLOL TARTRATE 25 MG TABLET (FP) PO SCH ×2 (09:50→21:23)
[2021-09-26] MEDS: ENOXAPARIN NA (PORCINE) 60 MG/0.6 ML DISP.SYRIN SQ SCH ×2 (09:55→21:24)
[2021-09-26] MEDS: ATORVASTATIN CA 40 MG TABLET (FP) NGT SCH (21:22)
[2021-09-27 08:06] LABS: SARS-CoV-2 NAA Not Detected (Not Detected)
[2021-09-27] MEDS: PANTOPRAZOLE SOD 40 MG SUSPENSION PACKET PO SCH (10:05)
[2021-09-27] MEDS: METOPROLOL TARTRATE 25 MG TABLET (FP) PO SCH ×2 (10:05→22:37)
[2021-09-27] MEDS: ENOXAPARIN NA (PORCINE) 60 MG/0.6 ML DISP.SYRIN SQ SCH ×2 (10:05→22:37)
[2021-09-27] MEDS: TAMSULOSIN HCL 0.4 MG CAP PO SCH (10:05)
[2021-09-27] MEDS: ATORVASTATIN CA 40 MG TABLET (FP) NGT SCH (22:37)
[2021-09-28 09:18] VITALS: BP 97/84; PULSE 84; TEMP 98.5
[2021-09-28] MEDS: ENOXAPARIN NA (PORCINE) 60 MG/0.6 ML DISP.SYRIN SQ SCH (09:30)
[2021-09-28] MEDS: PANTOPRAZOLE SOD 40 MG SUSPENSION PACKET PO SCH (09:32)
[2021-09-28] MEDS: TAMSULOSIN HCL 0.4 MG CAP PO SCH (10:36)
[2021-09-28] MEDS: METOPROLOL TARTRATE 25 MG TABLET (FP) PO SCH (10:36)
== END 2021-09-28 12:00 | DRG 871 ==
LOC: JER 15:20 → JERBED 17:20 → J4S 09-20 12:12
PROVIDERS: ADMIT Internal Medicine; ATTEND Family Medicine
DX: A41.9 Sepsis, unspecified organism (principal); E43 Unspecified severe protein-calorie malnutrition; R64 Cachexia; N39.0 Urinary tract infection, site not specified; K92.1 Melena; I48.19 Other persistent atrial fibrillation; Z68.1 Body mass index [BMI] 19.9 or less, adult; R65.20 Severe sepsis without septic shock; J43.9 Emphysema, unspecified; I10 Essential (primary) hypertension; E78.5 Hyperlipidemia, unspecified; D64.9 Anemia, unspecified; F41.9 Anxiety disorder, unspecified; Z79.01 Long term (current) use of anticoagulants; I69.391 Dysphagia following cerebral infarction; R13.10 Dysphagia, unspecified; Z86.16 Personal history of COVID-19; D69.6 Thrombocytopenia, unspecified; R21 Rash and other nonspecific skin eruption; F01.50 Vascular dementia, unspecified severity, without behavioral disturbance, psychotic disturbance, mood disturbance, and anxiety; L27.0 Generalized skin eruption due to drugs and medicaments taken internally; Z93.1 Gastrostomy status
CPT/HCPCS: 36415; 71045-TC-FY; 76775-TC; 76856-TC; 80048; 80053; 81003; 82272; 82728; 82784; 82803; 82962; 83516; 83540; 83550; 83605; 83735; 84155; 84165; 84443; 84484; 85025; 85027; 85045; 85610; 85730; 86140; 86334; 86850; 86900; 86901; 87040; 87077; 87086; 93005; 93010; 99285-25; C9803-CS; J1756; U0003; U0005

== ENCOUNTER 2022-04-19 15:30 | Inpatient (IN) | payer OTHER ==
[2022-04-19 15:50] VITALS: BMI 20.9
[2022-04-19 16:19] LABS: VENOUS BASE EXCESS -1.2 mmol/L (-2-2); VENOUS O2 SATURATION 40.7 % (70-80); VENOUS PCO2 44.1 mmHg (38-52); VENOUS PH 7.359 (7.310-7.410)
[2022-04-19 16:53] LABS: INR 1.17 (0.83-1.09); PROTHROMBIN TIME (PATIENT) 13.5 SEC (9.7-13.0)
[2022-04-19 16:56] LABS: ACTIVATED PTT 26.8 SECONDS (25.2-36.5)
[2022-04-19] MEDS ORDERED: SODIUM CHLORIDE 1,000 ML IV STA ×2 (16:57→16:58)
[2022-04-19 16:59] LABS: BASO % 0.6 % (0-2.0); EOS % 1.9 % (0-4.5); HEMATOCRIT 30.1 % (35.4-49); HEMOGLOBIN 10.1 GM/dL (11.7-16.9); LYMPH % 7.1 % (8-40); MCH 30.9 pg (25.7-33.7); MCHC 33.6 g/dl (32.0-35.9); MEAN CELL VOLUME 91.8 fl (80-96); MEAN PLT VOLUME 8.9 fl (7.5-11.1); MONO % 8.3 % (3.8-10.2); NEUT % 82.1 % (42.8-82.8); PLATELET COUNT 238 10^3/uL (134-434); RBC 3.28 M/mm3 (4.00-5.60); RDW 14.4 % (11.9-15.9); WHITE BLOOD COUNT 9.7 K/mm3 (4.0-10.0)
[2022-04-19] MEDS ORDERED: PIPERACILLIN/TAZOB 3.375 GM 3.375 GM in DEXTROSE 5%-WATER - 50 ML IVPB ONE (16:59)
[2022-04-19 17:00] LABS: ALBUMIN 2.6 g/dl (3.4-5.0); BLOOD UREA NITROGEN 17.4 mg/dL (7-18); CALCIUM 8.9 mg/dL (8.5-10.1)
[2022-04-19 17:03] LABS: CREATININE 0.7 mg/dL (0.55-1.3)
[2022-04-19 17:04] LABS: BILIRUBIN,TOTAL 0.6 mg/dL (0.2-1)
[2022-04-19 17:05] LABS: TOT PROT 5.4 g/dl (6.4-8.2)
[2022-04-19] MEDS ORDERED: CEFTRIAXONE 1,000 MG in DEXTROSE 5%-WATER - 50 ML IVPB ONE (17:12)
[2022-04-19 18:18] LABS: EPI CELLS 23 /uL (0-25.1); HYALINE CASTS 1 /uL (0-3.1); PH,URINE 5.5 (5.0-8.0); URINE APPEARANCE CLEAR; URINE BACTERIA 13 /uL (0-1359); URINE BILIRUBIN NEGATIVE (NEGATIVE); URINE COLOR YELLOW; URINE GLUCOSE (UA) NEGATIVE (NEGATIVE); URINE KETONE NEGATIVE (NEGATIVE); URINE LEUK ESTERASE 1+ (NEGATIVE); URINE NITRITE NEGATIVE (NEGATIVE); URINE PROTEIN TRACE (NEGATIVE); URINE RBC 40 /uL (0-23.9); URINE UROBILINOGEN 0.2 mg/dL (0.2-1.0); URINE WBC 45 /uL (0-25.8)
[2022-04-19] MEDS ORDERED: DEXAMETHASONE SOD PHOSPHATE 10 MG/1 ML VIAL IVPUSH ONE (18:28)
[2022-04-19] MEDS ORDERED: PIPERACILLIN/TAZOB 3.375 GM 3.375 GM/50 ML BAG IVPB ONE (18:37)
[2022-04-19] MEDS ORDERED: CEFTRIAXONE 1 GM/50 ML BAG ONE (18:37)
[2022-04-19] MEDS ORDERED: DEXAMETHASONE SOD PHOSPHATE 10 MG/1 ML VIAL ONE (18:37)
[2022-04-19] MEDS ORDERED: ALBUTEROL SO4 HFA INHALER IH PRN (19:22)
[2022-04-19] MEDS ORDERED: BENZOCAINE/MENTH/CETYLPYRD CL 1 EACH LOZENGE MM PRN (19:22)
[2022-04-19] MEDS ORDERED: TRIMETHOBENZAMIDE HCL 200MG/2ML INJ IM PRN (19:22)
[2022-04-19] MEDS ORDERED: RAPID SEQUENCE INTUBATION KIT NR ONE (21:30)
[2022-04-19 21:35] LABS: MAGNESIUM 1.7 mg/dL (1.8-2.4)
[2022-04-19 21:39] LABS: PHOSPHOROUS 2.7 mg/dL (2.5-4.9)
[2022-04-19] MEDS: LACTATED RINGERS SOLUTION 1,000 ML IV SCH (23:55)
[2022-04-20] MEDS ORDERED: MIDAZOLAM IN 0.9 % SOD.CHLORID 100 MG/100 ML PLAST..BAG IVPB SCH (00:30)
[2022-04-20] MEDS ORDERED: FENTANYL NS IVPB 500 MCG/100 ML BAG IVPB SCH (00:30)
[2022-04-20] MEDS ORDERED: PIPERACILLIN/TAZOB 3.375 GM 3.375 GM in DEXTROSE 5%-WATER - 50 ML IVPB ONE (02:59)
[2022-04-20 07:36] LABS: HEMOGLOBIN 10.7 GM/dL (11.7-16.9); MCH 30.6 pg (25.7-33.7); MCHC 33.3 g/dl (32.0-35.9); MEAN CELL VOLUME 91.8 fl (80-96); MEAN PLT VOLUME 8.7 fl (7.5-11.1); PLATELET COUNT 219 10^3/uL (134-434); RBC 3.49 M/mm3 (4.00-5.60); WHITE BLOOD COUNT 6.6 K/mm3 (4.0-10.0)
[2022-04-20 07:52] LABS: BLOOD UREA NITROGEN 12.4 mg/dL (7-18)
[2022-04-20 07:54] LABS: CREATININE 0.6 mg/dL (0.55-1.3)
[2022-04-20 09:31] LABS: ARTERIAL BLD GAS O2 SATURATION 99.9 % (95-98); ARTERIAL BLOOD GAS BASE EXCESS -1.6 mmol/L (-2-2); ARTERIAL BLOOD GAS PO2 482.3 mmHg (80-100); ARTERIAL BLOOD GAS pH 7.458 (7.350-7.450)
[2022-04-20 09:37] LABS: ALLENS TEST POSITIVE; PT'S TEMP 98.6; VENT MODE A/C; VENT RATE 14
[2022-04-20] MEDS ORDERED: REMDESIVIR 200 MG in SODIUM CHLORIDE 250 ML IVPB ONE (10:00)
[2022-04-20] MEDS: DEXAMETHASONE SOD PHOSPHATE 4 MG/1 ML VIAL IVPUSH SCH (11:15)
[2022-04-20] MEDS: PIPERACILLIN/TAZOB 3.375 GM 3.375 GM in DEXTROSE 5%-WATER - 50 ML IVPB SCH ×2 (11:15→17:04)
[2022-04-20] MEDS ORDERED: PIPERACILLIN/TAZOB 2.25 GM 2.25 GM in DEXTROSE 5%-WATER - 50 ML IVPB SCH (12:00)
[2022-04-20] MEDS: LACTATED RINGERS SOLUTION 1,000 ML IV SCH (21:48)
[2022-04-21] MEDS: PIPERACILLIN/TAZOB 3.375 GM 3.375 GM in DEXTROSE 5%-WATER - 50 ML IVPB SCH ×3 (02:08→17:17)
[2022-04-21 07:35] LABS: BASO % 0.2 % (0-2.0); EOS % 0.1 % (0-4.5); HEMATOCRIT 27.5 % (35.4-49); HEMOGLOBIN 9.5 GM/dL (11.7-16.9); LYMPH % 14.1 % (8-40); MCHC 34.6 g/dl (32.0-35.9); MEAN CELL VOLUME 89.7 fl (80-96); MEAN PLT VOLUME 8.5 fl (7.5-11.1); NEUT % 76.6 % (42.8-82.8); PLATELET COUNT 248 10^3/uL (134-434); RBC 3.06 M/mm3 (4.00-5.60); RDW 14.4 % (11.9-15.9); WHITE BLOOD COUNT 6.8 K/mm3 (4.0-10.0)
[2022-04-21 07:41] LABS: CALCIUM 8.6 mg/dL (8.5-10.1)
[2022-04-21 07:42] LABS: ALBUMIN 2.4 g/dl (3.4-5.0); MAGNESIUM 1.7 mg/dL (1.8-2.4)
[2022-04-21 07:45] LABS: CREATININE 0.6 mg/dL (0.55-1.3); PHOSPHOROUS 2.1 mg/dL (2.5-4.9)
[2022-04-21 07:46] LABS: BILIRUBIN,TOTAL 0.3 mg/dL (0.2-1)
[2022-04-21 07:47] LABS: TOT PROT 4.9 g/dl (6.4-8.2)
[2022-04-21] MEDS ORDERED: MAGNESIUM 2GM/50ML STERILE WATER IVPB IVPB ONE (08:30)
[2022-04-21] MEDS ORDERED: POTASSIUM CHLORIDE ORAL LIQUID 20 MEQ/15 ML PO ONE (08:30)
[2022-04-21] MEDS: DEXAMETHASONE SOD PHOSPHATE 4 MG/1 ML VIAL IVPUSH SCH (09:12)
[2022-04-21] MEDS ORDERED: POTASSIUM PHOSPHATE 30 MM in SODIUM CHLORIDE 250 ML IVPB ONE (09:30)
[2022-04-21] MEDS: KCL 10 MEQ IVPB 10 MEQ/100 ML INFUS.BAG IVPB SCH ×3 (10:15→12:30)
[2022-04-21] MEDS ORDERED: PIPERACILLIN/TAZOB 2.25 GM 2.25 GM in DEXTROSE 5%-WATER - 50 ML IVPB SCH (20:00)
[2022-04-21] MEDS: LACTATED RINGERS SOLUTION 1,000 ML IV SCH ×2 (20:24→21:23)
[2022-04-21] MEDS ORDERED: TRIMETHOBENZAMIDE HCL 200MG/2ML INJ IM PRN (20:44)
[2022-04-21] MEDS ORDERED: ALBUTEROL SO4 HFA INHALER IH PRN (20:44)
[2022-04-21] MEDS ORDERED: BENZOCAINE/MENTH/CETYLPYRD CL 1 EACH LOZENGE MM PRN (20:44)
[2022-04-22] MEDS: PIPERACILLIN/TAZOB 3.375 GM 3.375 GM in DEXTROSE 5%-WATER - 50 ML IVPB SCH ×4 (03:04→17:48)
[2022-04-22] MEDS ORDERED: MAGNESIUM 2GM/50ML STERILE WATER IVPB IVPB ONE ×2 (09:30→12:30)
[2022-04-22] MEDS ORDERED: KCL 10 MEQ IVPB 10 MEQ/100 ML INFUS.BAG IVPB SCH (09:45)
[2022-04-22] MEDS ORDERED: POTASSIUM PHOSPHATE 30 MM in DEXTROSE 5%-WATER - 500 ML IVPB ONE ×2 (10:30→13:30)
[2022-04-22] MEDS: DEXAMETHASONE SOD PHOSPHATE 10 MG/1 ML VIAL IVPUSH SCH (10:36)
[2022-04-22] MEDS ORDERED: ENOXAPARIN NA (PORCINE) 60 MG/0.6 ML DISP.SYRIN SQ SCH (11:15)
[2022-04-22 11:32] LABS: BASO % 0.1 % (0-2.0); EOS % 0.1 % (0-4.5); HEMOGLOBIN 11.7 GM/dL (11.7-16.9); LYMPH % 6.7 % (8-40); MCH 29.6 pg (25.7-33.7); MCHC 33.4 g/dl (32.0-35.9); MEAN CELL VOLUME 88.4 fl (80-96); MEAN PLT VOLUME 8.1 fl (7.5-11.1); MONO % 8.9 % (3.8-10.2); NEUT % 84.2 % (42.8-82.8); PLATELET COUNT 359 10^3/uL (134-434); RBC 3.96 M/mm3 (4.00-5.60); RDW 14.4 % (11.9-15.9); WHITE BLOOD COUNT 16.3 K/mm3 (4.0-10.0)
[2022-04-22] MEDS: REMDESIVIR 100 MG in SODIUM CHLORIDE 250 ML IVPB SCH (11:51)
[2022-04-22] MEDS: METOPROLOL TARTRATE 25 MG TABLET (FP) PO SCH ×2 (11:52→21:56)
[2022-04-22 11:53] LABS: CALCIUM 8.7 mg/dL (8.5-10.1)
[2022-04-22 11:54] LABS: ALBUMIN 2.8 g/dl (3.4-5.0); BLOOD UREA NITROGEN 10.8 mg/dL (7-18); MAGNESIUM 1.7 mg/dL (1.8-2.4)
[2022-04-22 11:57] LABS: CREATININE 0.6 mg/dL (0.55-1.3); PHOSPHOROUS 2.4 mg/dL (2.5-4.9)
[2022-04-22] MEDS ORDERED: PIPERACILLIN/TAZOB 3.375 GM 3.375 GM in DEXTROSE 5%-WATER - 50 ML IVPB SCH (11:58)
[2022-04-22 11:59] LABS: BILIRUBIN,TOTAL 0.7 mg/dL (0.2-1); TOT PROT 5.7 g/dl (6.4-8.2)
[2022-04-22] MEDS ORDERED: POTASSIUM CHLORIDE ORAL LIQUID 20 MEQ/15 ML PO SCH (12:45)
[2022-04-22] MEDS: MINERAL OIL/PET HY-PHL TOPICAL OINTMENT 454 GM JAR TP SCH ×2 (13:18→21:58)
[2022-04-22] MEDS: KCL 10 MEQ IVPB 10 MEQ/100 ML INFUS.BAG IVPB SCH ×2 (15:06→16:25)
[2022-04-22] MEDS ORDERED: METOPROLOL TARTRATE 25 MG TABLET (FP) PO ONE (15:51)
[2022-04-22] MEDS: APIXABAN 5 MG TABLET PO SCH (21:56)
[2022-04-22] MEDS: LACTATED RINGERS SOLUTION 1,000 ML IV SCH (22:01)
[2022-04-23] MEDS: PIPERACILLIN/TAZOB 3.375 GM 3.375 GM in DEXTROSE 5%-WATER - 50 ML IVPB SCH ×3 (02:31→17:47)
[2022-04-23 10:14] LABS: BASO % 0.3 % (0-2.0); EOS % 0.1 % (0-4.5); HEMATOCRIT 36.5 % (35.4-49); HEMOGLOBIN 12.5 GM/dL (11.7-16.9); LYMPH % 6.4 % (8-40); MCH 30.4 pg (25.7-33.7); MCHC 34.4 g/dl (32.0-35.9); MEAN CELL VOLUME 88.5 fl (80-96); MEAN PLT VOLUME 8.1 fl (7.5-11.1); MONO % 7.6 % (3.8-10.2); NEUT % 85.6 % (42.8-82.8); PLATELET COUNT 338 10^3/uL (134-434); RBC 4.12 M/mm3 (4.00-5.60); RDW 14.4 % (11.9-15.9); WHITE BLOOD COUNT 13.6 K/mm3 (4.0-10.0)
[2022-04-23] MEDS: METOPROLOL TARTRATE 25 MG TABLET (FP) PO SCH ×2 (10:17→22:44)
[2022-04-23] MEDS: APIXABAN 5 MG TABLET PO SCH ×2 (10:17→22:44)
[2022-04-23] MEDS: PANTOPRAZOLE 40 MG TABLET PO SCH (10:17)
[2022-04-23] MEDS: MINERAL OIL/PET HY-PHL TOPICAL OINTMENT 454 GM JAR TP SCH ×2 (10:18→22:44)
[2022-04-23] MEDS: DEXAMETHASONE SOD PHOSPHATE 10 MG/1 ML VIAL IVPUSH SCH (10:18)
[2022-04-23 10:32] LABS: BLOOD UREA NITROGEN 9.6 mg/dL (7-18); CALCIUM 9.3 mg/dL (8.5-10.1)
[2022-04-23 10:35] LABS: CREATININE 0.7 mg/dL (0.55-1.3)
[2022-04-23 10:37] LABS: BILIRUBIN,TOTAL 0.8 mg/dL (0.2-1)
[2022-04-23] MEDS: REMDESIVIR 100 MG in SODIUM CHLORIDE 250 ML IVPB SCH (11:24)
[2022-04-23] MEDS ORDERED: PATIENT'S OWN MEDICATION (NON-FORMULARY) (Baclofen [Baclofen] 20 MG Tablet) PO SCH (21:15)
[2022-04-23] MEDS: MIRTAZAPINE 15 MG TABLET (FP) PO SCH (22:44)
[2022-04-23] MEDS: ACETAMINOPHEN 500 MG TABLET (FP) PO SCH (22:44)
[2022-04-24] MEDS: PIPERACILLIN/TAZOB 3.375 GM 3.375 GM in DEXTROSE 5%-WATER - 50 ML IVPB SCH ×3 (02:24→17:29)
[2022-04-24] MEDS: TAMSULOSIN HCL 0.4 MG CAP PO SCH (08:59)
[2022-04-24] MEDS: DEXAMETHASONE SOD PHOSPHATE 10 MG/1 ML VIAL IVPUSH SCH (09:05)
[2022-04-24] MEDS: ACETAMINOPHEN 500 MG TABLET (FP) PO SCH ×2 (09:06→21:21)
[2022-04-24] MEDS: APIXABAN 5 MG TABLET PO SCH ×2 (09:06→21:21)
[2022-04-24] MEDS: FINASTERIDE 5 MG TABLET (FP) PO SCH (09:06)
[2022-04-24] MEDS: PANTOPRAZOLE 40 MG TABLET PO SCH (09:06)
[2022-04-24] MEDS: METOPROLOL TARTRATE 25 MG TABLET (FP) PO SCH ×3 (09:07→21:21)
[2022-04-24] MEDS: MINERAL OIL/PET HY-PHL TOPICAL OINTMENT 454 GM JAR TP SCH ×2 (09:07→21:23)
[2022-04-24 09:46] LABS: BASO % 0.3 % (0-2.0); EOS % 0.5 % (0-4.5); HEMATOCRIT 36.4 % (35.4-49); LYMPH % 14.8 % (8-40); MCH 29.6 pg (25.7-33.7); MCHC 32.9 g/dl (32.0-35.9); MEAN CELL VOLUME 89.8 fl (80-96); MEAN PLT VOLUME 8.4 fl (7.5-11.1); MONO % 7.8 % (3.8-10.2); NEUT % 76.6 % (42.8-82.8); PLATELET COUNT 352 10^3/uL (134-434); RBC 4.05 M/mm3 (4.00-5.60); RDW 14.9 % (11.9-15.9); WHITE BLOOD COUNT 9.5 K/mm3 (4.0-10.0)
[2022-04-24 10:07] LABS: CALCIUM 9.2 mg/dL (8.5-10.1)
[2022-04-24 10:08] LABS: ALBUMIN 2.8 g/dl (3.4-5.0); BLOOD UREA NITROGEN 15.9 mg/dL (7-18); MAGNESIUM 2.3 mg/dL (1.8-2.4)
[2022-04-24 10:11] LABS: CREATININE 0.8 mg/dL (0.55-1.3)
[2022-04-24 10:12] LABS: BILIRUBIN,TOTAL 0.7 mg/dL (0.2-1); TOT PROT 5.7 g/dl (6.4-8.2)
[2022-04-24] MEDS: REMDESIVIR 100 MG in SODIUM CHLORIDE 250 ML IVPB SCH (10:41)
[2022-04-24] MEDS ORDERED: BACLOFEN 10 MG TABLET (FP) PO PRN (11:49)
[2022-04-24] MEDS: MIDODRINE HCL 2.5 MG TABLET PO SCH ×2 (13:07→17:29)
[2022-04-24] MEDS: MIRTAZAPINE 15 MG TABLET (FP) PO SCH (21:21)
[2022-04-25] MEDS: PIPERACILLIN/TAZOB 3.375 GM 3.375 GM in DEXTROSE 5%-WATER - 50 ML IVPB SCH ×3 (02:07→18:04)
[2022-04-25 09:30] LABS: BASO % 0.2 % (0-2.0); EOS % 0.7 % (0-4.5); HEMATOCRIT 33.5 % (35.4-49); HEMOGLOBIN 11.4 GM/dL (11.7-16.9); LYMPH % 15.5 % (8-40); MCH 30.5 pg (25.7-33.7); MCHC 33.9 g/dl (32.0-35.9); MONO % 6.5 % (3.8-10.2); NEUT % 77.1 % (42.8-82.8); PLATELET COUNT 301 10^3/uL (134-434); RBC 3.73 M/mm3 (4.00-5.60); RDW 14.6 % (11.9-15.9); WHITE BLOOD COUNT 9.9 K/mm3 (4.0-10.0)
[2022-04-25 10:19] LABS: CALCIUM 8.6 mg/dL (8.5-10.1); MAGNESIUM 2.2 mg/dL (1.8-2.4)
[2022-04-25 10:20] LABS: ALBUMIN 2.6 g/dl (3.4-5.0); BLOOD UREA NITROGEN 19.5 mg/dL (7-18)
[2022-04-25 10:22] LABS: TOT PROT 5.4 g/dl (6.4-8.2)
[2022-04-25 10:23] LABS: BILIRUBIN,TOTAL 0.5 mg/dL (0.2-1); CREATININE 0.8 mg/dL (0.55-1.3)
[2022-04-25] MEDS: PANTOPRAZOLE 40 MG TABLET PO SCH (10:55)
[2022-04-25] MEDS: MIDODRINE HCL 2.5 MG TABLET PO SCH ×3 (10:55→19:00)
[2022-04-25] MEDS: METOPROLOL TARTRATE 25 MG TABLET (FP) PO SCH ×2 (10:55→21:54)
[2022-04-25] MEDS: TAMSULOSIN HCL 0.4 MG CAP PO SCH (10:55)
[2022-04-25] MEDS: APIXABAN 5 MG TABLET PO SCH ×2 (10:56→21:54)
[2022-04-25] MEDS: FINASTERIDE 5 MG TABLET (FP) PO SCH (10:56)
[2022-04-25] MEDS: MINERAL OIL/PET HY-PHL TOPICAL OINTMENT 454 GM JAR TP SCH ×2 (10:56→21:53)
[2022-04-25] MEDS: DEXAMETHASONE SOD PHOSPHATE 10 MG/1 ML VIAL IVPUSH SCH (10:56)
[2022-04-25] MEDS: ACETAMINOPHEN 500 MG TABLET (FP) PO SCH ×2 (10:57→21:54)
[2022-04-25] MEDS: REMDESIVIR 100 MG in SODIUM CHLORIDE 250 ML IVPB SCH (12:21)
[2022-04-25] MEDS: MIRTAZAPINE 15 MG TABLET (FP) PO SCH (21:53)
[2022-04-26] MEDS: PIPERACILLIN/TAZOB 3.375 GM 3.375 GM in DEXTROSE 5%-WATER - 50 ML IVPB SCH ×2 (02:37→10:33)
[2022-04-26 06:50] VITALS: RESP 18
[2022-04-26 10:13] LABS: BASO % 0.3 % (0-2.0); EOS % 0.4 % (0-4.5); HEMOGLOBIN 12.1 GM/dL (11.7-16.9); MCH 29.5 pg (25.7-33.7); MCHC 32.8 g/dl (32.0-35.9); MEAN CELL VOLUME 89.9 fl (80-96); MEAN PLT VOLUME 8.2 fl (7.5-11.1); MONO % 7.4 % (3.8-10.2); NEUT % 72.9 % (42.8-82.8); PLATELET COUNT 326 10^3/uL (134-434); RBC 4.11 M/mm3 (4.00-5.60); RDW 14.8 % (11.9-15.9); WHITE BLOOD COUNT 8.5 K/mm3 (4.0-10.0)
[2022-04-26] MEDS: TAMSULOSIN HCL 0.4 MG CAP PO SCH (10:33)
[2022-04-26] MEDS: PANTOPRAZOLE 40 MG TABLET PO SCH (10:33)
[2022-04-26] MEDS: FINASTERIDE 5 MG TABLET (FP) PO SCH (10:33)
[2022-04-26] MEDS: APIXABAN 5 MG TABLET PO SCH ×2 (10:33→22:37)
[2022-04-26] MEDS: ASPIRIN 81 MG CHEWABLE TABLETS PO SCH (10:33)
[2022-04-26] MEDS: METOPROLOL TARTRATE 25 MG TABLET (FP) PO SCH ×2 (10:33→22:33)
[2022-04-26] MEDS: MINERAL OIL/PET HY-PHL TOPICAL OINTMENT 454 GM JAR TP SCH ×2 (10:33→22:42)
[2022-04-26] MEDS: MIDODRINE HCL 2.5 MG TABLET PO SCH ×3 (10:33→18:59)
[2022-04-26] MEDS: DEXAMETHASONE SOD PHOSPHATE 10 MG/1 ML VIAL IVPUSH SCH (10:34)
[2022-04-26] MEDS: ACETAMINOPHEN 500 MG TABLET (FP) PO SCH ×2 (10:36→22:35)
[2022-04-26 10:40] LABS: TOT PROT 5.6 g/dl (6.4-8.2)
[2022-04-26 10:43] LABS: ALBUMIN 2.8 g/dl (3.4-5.0); BLOOD UREA NITROGEN 21.3 mg/dL (7-18); CREATININE 0.7 mg/dL (0.55-1.3); MAGNESIUM 2.1 mg/dL (1.8-2.4)
[2022-04-26 10:45] LABS: BILIRUBIN,TOTAL 0.4 mg/dL (0.2-1)
[2022-04-26] MEDS: AMOX TR/POT CLAV 500MG/125MG TABLETS (FP) PO SCH (16:39)
[2022-04-26] MEDS: ATORVASTATIN CA 40 MG TABLET (FP) PO SCH (22:37)
[2022-04-26] MEDS: MIRTAZAPINE 15 MG TABLET (FP) PO SCH (22:37)
[2022-04-27] MEDS: DEXAMETHASONE 4 MG TABLET (FP) PO SCH (09:57)
[2022-04-27] MEDS: ASPIRIN 81 MG CHEWABLE TABLETS PO SCH (09:57)
[2022-04-27] MEDS: ACETAMINOPHEN 500 MG TABLET (FP) PO SCH ×2 (09:59→23:10)
[2022-04-27] MEDS: METOPROLOL TARTRATE 25 MG TABLET (FP) PO SCH ×2 (09:59→23:14)
[2022-04-27] MEDS: MIDODRINE HCL 2.5 MG TABLET PO SCH ×3 (09:59→17:23)
[2022-04-27] MEDS: AMOX TR/POT CLAV 500MG/125MG TABLETS (FP) PO SCH ×2 (09:59→17:23)
[2022-04-27] MEDS: FINASTERIDE 5 MG TABLET (FP) PO SCH (09:59)
[2022-04-27] MEDS: PANTOPRAZOLE 40 MG TABLET PO SCH (10:00)
[2022-04-27] MEDS: TAMSULOSIN HCL 0.4 MG CAP PO SCH (10:00)
[2022-04-27] MEDS: APIXABAN 5 MG TABLET PO SCH ×2 (10:00→23:09)
[2022-04-27] MEDS: MINERAL OIL/PET HY-PHL TOPICAL OINTMENT 454 GM JAR TP SCH ×2 (10:33→23:18)
[2022-04-27] MEDS: MIRTAZAPINE 15 MG TABLET (FP) PO SCH (23:09)
[2022-04-27] MEDS: ATORVASTATIN CA 40 MG TABLET (FP) PO SCH (23:09)
[2022-04-28] MEDS: DEXAMETHASONE 4 MG TABLET (FP) PO SCH (10:33)
[2022-04-28] MEDS: AMOX TR/POT CLAV 500MG/125MG TABLETS (FP) PO SCH (10:33)
[2022-04-28] MEDS: ASPIRIN 81 MG CHEWABLE TABLETS PO SCH (10:33)
[2022-04-28] MEDS: APIXABAN 5 MG TABLET PO SCH (10:34)
[2022-04-28] MEDS: MIDODRINE HCL 2.5 MG TABLET PO SCH (10:34)
[2022-04-28] MEDS: TAMSULOSIN HCL 0.4 MG CAP PO SCH (10:34)
[2022-04-28] MEDS: ACETAMINOPHEN 500 MG TABLET (FP) PO SCH (10:34)
[2022-04-28] MEDS: PANTOPRAZOLE 40 MG TABLET PO SCH (10:35)
[2022-04-28] MEDS: FINASTERIDE 5 MG TABLET (FP) PO SCH (10:35)
[2022-04-28] MEDS: MINERAL OIL/PET HY-PHL TOPICAL OINTMENT 454 GM JAR TP SCH (10:35)
[2022-04-28] MEDS: METOPROLOL TARTRATE 25 MG TABLET (FP) PO SCH (10:35)
[2022-04-28 15:05] VITALS: BP 116/63; PULSE 58; TEMP 98.5
== END 2022-04-28 15:12 | DRG 871 ==
LOC: JER 15:30 → JERBED 17:13 → JICU 22:52 → J8W 04-21 23:11
PROVIDERS: ADMIT Internal Medicine; ATTEND Nurse Practitioner Acute Care
PROC: 5A1945Z Respiratory Ventilation, 24-96 Consecutive Hours (ICD-10-PCS; principal; 2022-04-19)
PROC: 0BH17EZ Insertion of Endotracheal Airway into Trachea, Via Natural or Artificial Opening (ICD-10-PCS; 2022-04-19)
PROC: XW033E5 Introduction of Remdesivir Anti-infective into Peripheral Vein, Percutaneous Approach, New Technology Group 5 (ICD-10-PCS; 2022-04-19)
DX: A41.89 Other specified sepsis (principal); E43 Unspecified severe protein-calorie malnutrition; G93.41 Metabolic encephalopathy; U07.1 COVID-19; J96.01 Acute respiratory failure with hypoxia; J12.82 Pneumonia due to coronavirus disease 2019; R64 Cachexia; N39.0 Urinary tract infection, site not specified; F03.911 Unspecified dementia, unspecified severity, with agitation; F41.9 Anxiety disorder, unspecified; R65.10 Systemic inflammatory response syndrome (SIRS) of non-infectious origin without acute organ dysfunction; J43.9 Emphysema, unspecified; I10 Essential (primary) hypertension; D64.9 Anemia, unspecified; I48.91 Unspecified atrial fibrillation; E78.5 Hyperlipidemia, unspecified; N40.0 Benign prostatic hyperplasia without lower urinary tract symptoms; Z68.20 Body mass index [BMI] 20.0-20.9, adult
CPT/HCPCS: 0241U-QW; 36415; 36600; 70450-TC; 71045-TC-FY; 80048; 80053; 81003; 82550; 82553; 82728; 82803; 82962; 83605; 83615; 83735; 84100; 84484; 85025; 85027; 85379; 85610; 85730; 86140; 86850; 86900; 86901; 87040; 87086; 93005; 93010; 94002; 97116-GP; 97161-GP; 99285-25; C9399; C9803-CS; J1100; U0003; U0005